=== PATIENT | female | born 1970 | race Caucasian/White ===

== ENCOUNTER 2016-07-10 22:52 | Emergency (ER) | payer BC ==
[2016-07-10 23:08] VITALS: BP 141/87
[2016-07-10] MEDS ORDERED: Sodium Chloride 0.9% 10 ML Syringe FLUSH PRN (23:27)
[2016-07-10] MEDS ORDERED: Albuterol/Ipratropium 3.0-0.5 MG/3 ML Neb Soln NEB ONE (23:28)
[2016-07-10] MEDS ORDERED: methylPREDNISolone Sodium Succinate 40 MG/1 ML SDV IVPUSH ONE (23:28)
--- NOTE | 2016-07-10 23:32 | EDM.PDOC ---
ED HISTORY OF PRESENT ILLNESS - General Chief Complaint: Respiratory Problem Stated Complaint: COUGH Time Seen by Provider: 07/10/16 23:23 Source: Reports: Patient, Family, RN notes reviewed History Limitations: Reports: No limitations - History of Present Illness INITIAL COMMENTS - FREE TEXT/NARRATIVE: 46-year-old female presents emergency department for a complaint of shortness of breath, she's been ill for about 2 weeks was evaluated in urgent care clinic 3 days prior felt to have bronchitis and started on azithromycin, she states she just has not improved and has progressively gotten more short of breath or wheezing or cough and has had temperature in the 99, - Related Data Allergies/ADRs: Allergies Allergy/AdvReac Type Severity Reaction Status Date / Time No Known Allergies Allergy Verified 07/10/16 23:09 Home Meds: Home Meds buPROPion [Wellbutrin XL] 150 mg PO BID 04/21/13 [History] Albuterol [Ventolin HFA] 2 puff INH QID PRN 07/10/16 [History] Azithromycin [Azithromycin] 1 tab PO DAILY 07/10/16 [History] 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: Musculoskeletal History: Reports: Back pain, chronic, Fracture - Infectious Disease History Infectious Disease History: Reports: Chicken pox, Shingles - Past Surgical History HEENT Surgical History: Reports: Tonsillectomy GI Surgical History: Reports: Hernia, abdominal Female Surgical History: Reports: section Musculoskeletal Surgical History: Reports: Arthroscopic knee, Other (see below) Other Musculoskeletal Surgeries/Procedures:: hand surgery Fusion l foot Oncologic Surgical History: Reports: Lumpectomy Social & Family History - Tobacco Use Smoking Status *Q: Light Tobacco Smoker Years of Tobacco use: 15 Packs/Tins Daily: 0.5 Used Tobacco, but Quit: No Second Hand Smoke Exposure: Yes - Caffeine Use Caffeine Use: Reports: Coffee, Tea - Alcohol Use Days Per Week of Alcohol Use: 0 - Recreational Drug Use Recreational Drug Use: No ED ROS GENERAL - Review of Systems Review Of Systems: See Below Constitutional: Reports: fever, chills HEENT: Reports: No symptoms Respiratory: Reports: Shortness of Breath, Cough, Sputum Cardiovascular: Reports: Dyspnea on exertion, Lightheadedness. Denies: Chest pain GI/Abdominal: Reports: No symptoms : Reports: no symptoms Musculoskeletal: Reports: no symptoms Skin: Reports: no symptoms Neurological: Reports: No Symptoms ED EXAM, GENERAL - Physical Exam Exam: See Below Free Text/Narrative:: General: female, mild respiratory distress, alert and oriented x3 HEENT: head is atraumatic normocephalic, eyes pupils equal round reactive to light, sclera clear no conjunctivitis appreciated. Ears tympanic membranes clear and dobson landmarks and light reflex are present bilaterally canals are clear. Nose no septal deviation, nares are clear, no blood present. Mouth mucosa is moist and pink no erythema or exudate noted in soft palate, tongue is midline uvula is midline, dentition is intact. Neck: Supple no thyromegaly no tracheal deviation. Nodes: Cervical nodes subclavicular nodes nontender no palpable lymphadenopathy noted. Lungs: expiratory wheeze probably on the right side mid to lower lung roque otherwise coarse breath sounds CV: Regular rate and rhythm S1 and S2 appreciated no murmurs rubs or gallops noted. Abdomen: Soft, nontender, no palpable masses or organomegaly appreciated, no distention no guarding bowel sounds are present . Neuro: Cranial nerves II through XII grossly intact Skin: Warm and dry, intact Extremities: +1 pitting edema bilaterally Course - Vital Signs Last Recorded V/S: Last Vital Signs Temp 98.1 F 07/10/16 23:19 Pulse 75 07/10/16 23:19 Resp 16 07/10/16 23:19 BP 141/87 H 07/10/16 23:19 Pulse Ox 99 07/10/16 23:19 - Orders/Labs/Meds Orders: Active Orders 24 hr Category Date Time Status Peripheral IV Care [RC] . DIRECTED Care 07/10/16 23:28 Active RT Aerosol Therapy [RC] ASDIRECTED Care 07/10/16 23:29 Active Chest 2V [CR] Urgent Exams 07/10/16 23:27 Taken INFLUENZA A+B AG SCREEN [RM] Urgent Lab 07/10/16 23:45 Ordered Sodium Chloride 0.9% [Saline Flush] Med 07/10/16 23:27 Active 10 ml FLUSH ASDIRECTED PRN Sodium Chloride 0.9% [Saline Flush] Med 07/10/16 23:27 Active 10 ml FLUSH ASDIRECTED PRN cefTRIAXone [Rocephin] 1 gm Med 07/11/16 00:20 Ordered Sodium Chloride 0.9% [Normal Saline] 50 ml IV ONETIME Peripheral IV Insertion Adult [OM.PC] Urgent Oth 07/10/16 23:27 Ordered Medication Orders Ceftriaxone Sodium 1 gm/ (Sodium Chloride) 50 mls @ 100 mls/hr IV ONETIME ONE Stop: 07/11/16 00:49 Sodium Chloride (Saline Flush) 10 ml FLUSH ASDIRECTED PRN PRN Reason: Keep Vein Open Sodium Chloride (Saline Flush) 10 ml FLUSH ASDIRECTED PRN PRN Reason: Keep Vein Open Last Admin: 07/10/16 23:41 Dose: 10 ml Admin: 07/10/16 23:39 Dose: 10 ml Labs: Laboratory Tests 07/10/16 07/10/16 07/10/16 Range/Units 23:38 23:38 23:38 WBC 8.0 (4.5-11.0) K/uL RBC 4.08 (3.30-5.50) M/uL Hgb 12.1 (12.0-15.0) g/dL Hct 36.7 (36.0-48.0) % MCV 90 (80-98) fL MCH 30 (27-31) pg MCHC 33 (32-36) % Plt Count 239 (150-400) K/uL Neut % (Auto) 30 L (36-66) % Lymph % (Auto) 52 H (24-44) % [place] % (Auto) 12 H (2-6) % Eos % (Auto) 4 (2-4) % Baso % (Auto) 2 H (0-1) % Sodium 142 (140-148) mmol/L Potassium 4.0 (3.6-5.2) mmol/L Chloride 107 (100-108) mmol/L Carbon Dioxide 23 (21-32) mmol/L Anion Gap 12.1 (5.0-14.0) mmol/L BUN 13 (7-18) mg/dL Creatinine 1.0 (0.6-1.0) mg/dL Est Cr Clr Drug Dosing 56.19 mL/min Estimated GFR (MDRD) 60 (>60) Glucose 93 (74-106) mg/dL Lactic Acid 1.4 (0.4-2.0) mmol/L Calcium 8.6 (8.5-10.1) mg/dL Total Bilirubin 0.2 (0.2-1.0) mg/dL AST 24 (15-37) U/L ALT 35 (12-78) U/L Alkaline Phosphatase 52 (46-116) U/L Troponin I (0.000-0.056) ng/mL Htc-L-Qintivclxwy Pept (5-125) pg/mL Total Protein 7.1 (6.4-8.2) g/dL Albumin 3.6 (3.4-5.0) g/dL Globulin 3.5 (2.3-3.5) g/dL Albumin/Globulin Ratio 1.0 L (1.2-2.2) 07/10/16 07/10/16 Range/Units 23:38 23:38 WBC (4.5-11.0) K/uL RBC (3.30-5.50) M/uL Hgb (12.0-15.0) g/dL Hct (36.0-48.0) % MCV (80-98) fL MCH (27-31) pg MCHC (32-36) % Plt Count (150-400) K/uL Neut % (Auto) (36-66) % Lymph % (Auto) (24-44) % [place] % (Auto) (2-6) % Eos % (Auto) (2-4) % Baso % (Auto) (0-1) % Sodium (140-148) mmol/L Potassium (3.6-5.2) mmol/L Chloride (100-108) mmol/L Carbon Dioxide (21-32) mmol/L Anion Gap (5.0-14.0) mmol/L BUN (7-18) mg/dL Creatinine (0.6-1.0) mg/dL Est Cr Clr Drug Dosing mL/min Estimated GFR (MDRD) (>60) Glucose (74-106) mg/dL Lactic Acid (0.4-2.0) mmol/L Calcium (8.5-10.1) mg/dL Total Bilirubin (0.2-1.0) mg/dL AST (15-37) U/L ALT (12-78) U/L Alkaline Phosphatase (46-116) U/L Troponin I < 0.017 (0.000-0.056) ng/mL Wfh-D-Twdzyromnmc Pept 228 H (5-125) pg/mL Total Protein (6.4-8.2) g/dL Albumin (3.4-5.0) g/dL Globulin (2.3-3.5) g/dL Albumin/Globulin Ratio (1.2-2.2) Meds: Medications Generic Name Dose Route Start Last Admin Trade Name Freq PRN Reason Stop Dose Admin Ceftriaxone Sodium 1 gm/ 50 mls @ 100 mls/hr 07/11/16 00:20 Sodium Chloride IV 07/11/16 00:49 ONETIME ONE Sodium Chloride 10 ml 07/10/16 23:27 Saline Flush FLUSH ASDIRECTED PRN Keep Vein Open Sodium Chloride 10 ml 07/10/16 23:27 07/10/16 23:41 Saline Flush FLUSH 10 ml ASDIRECTED PRN Administration Keep Vein Open Discontinued Medications Generic Name Dose Route Start Last Admin Trade Name Freq PRN Reason Stop Dose Admin Albuterol/Ipratropium 3 ml 07/10/16 23:28 07/10/16 23:39 Duoneb 3.0-0.5 Mg/3 Ml NEB 07/10/16 23:29 3 ml ONETIME ONE Administration Methylprednisolone Sodium Succinate 40 mg 07/10/16 23:28 07/10/16 23:40 Solu-Medrol IVPUSH 07/10/16 23:29 40 mg ONETIME ONE Administration Departure - Departure Time of Disposition: 00:23 Disposition: Home, Self-Care 01 Condition: good Clinical Impression: Bronchitis, Wheezing, Cough Forms: ED Department Discharge Additional Instructions: continue course of antibiotics of azithromycin are started, take full course of prednisone for 5 days, use Robitussin a.c. as needed help suppress the cough, Please followup with your primary care provider in 3-5 days if not better, please call return to the emergency department with worsening of symptoms. - My Orders Last 24 Hours: My Active Orders 07/10/16 23:27 Chest 2V [CR] Urgent Sodium Chloride 0.9% [Saline Flush] 10 ml FLUSH ASDIRECTED PRN Sodium Chloride 0.9% [Saline Flush] 10 ml FLUSH ASDIRECTED PRN Peripheral IV Insertion Adult [OM.PC] Urgent 07/10/16 23:28 Peripheral IV Care [RC] . DIRECTED 07/10/16 23:29 RT Aerosol Therapy [RC] ASDIRECTED 07/10/16 23:45 INFLUENZA A+B AG SCREEN [RM] Urgent 07/11/16 00:20 cefTRIAXone [Rocephin] 1 gm Sodium Chloride 0.9% [Normal Saline] 50 ml IV ONETIME - Assessment/Plan Last 24 Hours: My Active Orders 07/10/16 23:27 Chest 2V [CR] Urgent Sodium Chloride 0.9% [Saline Flush] 10 ml FLUSH ASDIRECTED PRN Sodium Chloride 0.9% [Saline Flush] 10 ml FLUSH ASDIRECTED PRN Peripheral IV Insertion Adult [OM.PC] Urgent 07/10/16 23:28 Peripheral IV Care [RC] . DIRECTED 07/10/16 23:29 RT Aerosol Therapy [RC] ASDIRECTED 07/10/16 23:45 INFLUENZA A+B AG SCREEN [RM] Urgent 07/11/16 00:20 cefTRIAXone [Rocephin] 1 gm Sodium Chloride 0.9% [Normal Saline] 50 ml IV ONETIME Plan: Assessment Acuity = acute Site and laterality = bronchitis with a component of reactive airway Etiology =suspicious for bacterial cause Manifestations = wheezing, dyspnea Location of injury = home Lab values = CBC, CMP within normal limits troponin negative, BNP mildly elevated at 228, chest x-ray I did review films myself I cannot appreciate any acute process, the official read from radiology is pending Plan I did review blood work and chest x-ray were results with her she had some relief with the DuoNeb provided she was given 40 mg of Solu-Medrol IV as well as 1 g of Rocephin plan is to continue the course of azithromycin as an outpatient in combination with 20 mg prednisone for 5 days as well as Robitussin -AC for cough suppressant followup with primary care 2-3 days if no improvement Patient was in agreement with the plan all questions were answered, they were instructed to return to the emergency department or call for worsening symptoms. This note was dictated using [employer] voice recognition software please call with any questions.
[2016-07-10] MEDS: Sodium Chloride 0.9% 10 ML Syringe FLUSH PRN ×2 (23:39→23:41)
[2016-07-11] MEDS ORDERED: cefTRIAXone 1 GM in Sodium Chloride 0.9% 50 ML IV ONE (00:20)
--- NOTE | 2016-07-11 09:07 | CR ---
Chest 2V INDICATION: cough FINDINGS: Heart size normal. Lungs are clear. Mild hypertrophic changes thoracic spine.
== END 2016-07-11 00:50 | disposition home or self-care (01) ==
LOC: JP.ED 22:52
DX: J40 Bronchitis, not specified as acute or chronic (principal); R06.2 Wheezing; R05 Cough; F17.210 Nicotine dependence, cigarettes, uncomplicated; Z79.899 Other long term (current) drug therapy; Z98.890 Other specified postprocedural states
CPT/HCPCS: 36415; 71020; 80053; 83605; 83880; 84484; 85025; 87804; 94640; 96374; 99285; J0696; J2920; J7050; J7620

== ENCOUNTER 2017-08-23 07:06 | Emergency (ER) | payer BC ==
[2017-08-23 07:21] VITALS: BP 116/90
[2017-08-23] MEDS ORDERED: Albuterol 0.083% 2.5 MG/3 ML Neb Soln NEB ONE (07:48)
[2017-08-23] MEDS ORDERED: Benzonatate 100 MG Cap PO ONE (07:49)
--- NOTE | 2017-08-23 08:53 | CR ---
CHEST: 2 view CLINICAL HISTORY:Shortness of breath COMPARISON:2017 FINDINGS: Heart size pulmonary vascularity and hilar structures are normal. No infiltrate effusion o r pneumothorax is seen. There is stable mild compression deformities in the midthoracic spine Impression: No acute cardiopulmonary process or significant change from prior study.
[2017-08-23] MEDS ORDERED: Albuterol/Ipratropium 3.0-0.5 MG/3 ML Neb Soln NEB ONE (09:03)
--- NOTE | 2017-08-23 09:15 | EDM.PDOC ---
ED HPI GENERAL MEDICAL PROBLEM - General Chief Complaint: Respiratory Problem Stated Complaint: COPD Time Seen by Provider: 08/23/17 07:20 Source of Information: Reports: Patient History Limitations: Reports: No Limitations - History of Present Illness INITIAL COMMENTS - FREE TEXT/NARRATIVE: pt arrived feeling sob. She was at the walk in clinic on Monday and she was placed on predisone and augmentin. She is slightly better but she is still not comfortable. Onset: Gradual, Other ( Pt has been coughing and wheezing for several days. ) Duration: Day(s): Location: Reports: Chest Associated Symptoms: Reports: Cough, Fever/Chills, Malaise, Shortness of Breath Bilateral Middle Mid-Posterior Chest Pain Score (Numeric/FACES): 2 - Related Data Allergies Allergy/AdvReac Type Severity Reaction Status Date / Time No Known Allergies Allergy Verified 07/10/16 23:09 Home Meds: Home Meds buPROPion [Wellbutrin XL] 150 mg PO BID 04/21/13 [History] Albuterol [Ventolin HFA] 2 puff INH QID PRN 07/10/16 [History] Azithromycin 1 tab PO DAILY 07/10/16 [History] Beclomethasone Dipropionate [Qvar] 2 mcg PO BID 08/23/17 [History] Montelukast [Singulair] 10 mg PO DAILY 08/23/17 [History] Past Medical History Respiratory History: Reports: COPD, Pneumonia, 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: Musculoskeletal History: Reports: Back Pain, Chronic, Fracture Psychiatric History: Reports: Depression - Infectious Disease History Infectious Disease History: Reports: Chicken Pox, Shingles - Past Surgical History HEENT Surgical History: Reports: Tonsillectomy GI Surgical History: Reports: Hernia, Abdominal Female Surgical History: Reports: Section Musculoskeletal Surgical History: Reports: Arthroscopic Knee, Other (See Below) Oncologic Surgical History: Reports: Lumpectomy Social & Family History - Tobacco Use Smoking Status *Q: Former Smoker Years of Tobacco use: 30 Packs/Tins Daily: 0.5 Used Tobacco, but Quit: Yes Month/Year Tobacco Last Used: 1 Second Hand Smoke Exposure: Yes - Caffeine Use Caffeine Use: Reports: Coffee - Alcohol Use Days Per Week of Alcohol Use: 0 - Recreational Drug Use Recreational Drug Use: No Recreational Drug Type: Reports: Other (see below) Other Recreational Drug Type: occ THC ED ROS GENERAL - Review of Systems Review Of Systems: See Below Constitutional: Reports: No Symptoms HEENT: Reports: No Symptoms Respiratory: Reports: Shortness of Breath, Wheezing, Cough Cardiovascular: Reports: No Symptoms Endocrine: Reports: No Symptoms GI/Abdominal: Reports: No Symptoms : Reports: No Symptoms ED EXAM, GENERAL - Physical Exam Exam: See Below Free Text/Narrative:: pt arrived with sob and wheezing. She is coughing markedly. She is on predisone and augmentin. Exam Limited By: No Limitations General Appearance: Alert, Mild Distress Ears: Normal TMs Nose: Normal Inspection Throat/Mouth: Normal Inspection Head: Atraumatic Neck: Normal Inspection Respiratory/Chest: Decreased Breath Sounds, Wheezing Cardiovascular: Regular Rate, Rhythm GI/Abdominal: Soft, Non-Tender Rectal (Female) Exam: Deferred Extremities: Normal Inspection Neurological: Alert, Oriented, Normal Cognition Psychiatric: Anxious Course - Vital Signs Last Recorded V/S: Last Vital Signs Temp 35.4 C 08/23/17 07:19 Pulse 84 08/23/17 07:19 Resp 20 08/23/17 07:19 BP 116/90 08/23/17 07:19 Pulse Ox 99 08/23/17 07:19 - Orders/Labs/Meds Orders: Active Orders 24 hr Category Date Time Status RT Aerosol Therapy [RC] ASDIRECTED Care 08/23/17 07:48 Active RT Aerosol Therapy [RC] ASDIRECTED Care 08/23/17 09:03 Active Labs: Laboratory Tests 08/23/17 08/23/17 08/23/17 Range/Units 07:41 07:41 07:45 WBC 10.8 (4.5-11.0) K/uL RBC 4.61 (3.30-5.50) M/uL Hgb 13.7 (12.0-15.0) g/dL Hct 41.4 (36.0-48.0) % MCV 90 (80-98) fL MCH 30 (27-31) pg MCHC 33 (32-36) % Plt Count 234 (150-400) K/uL Neut % (Auto) 60 (36-66) % Lymph % (Auto) 32 (24-44) % [place] % (Auto) 8 H (2-6) % Eos % (Auto) 0 L (2-4) % Baso % (Auto) 0 (0-1) % Puncture Site Rt radial ABG pH 7.423 (7.350-7.450) ABG pCO2 34.3 L (35.0-42.0) mmHg ABG pO2 78.9 (75.0-100.0) mmHg ABG HCO3 21.9 L (22.0-26.0) mmol/L ABG Total CO2 19.4 L (21.0-25.0) mmol/L ABG O2 Saturation 96.0 (95.0-98.0) % ABG O2 Content 17.9 (15.0-23.0) %vol ABG Base Excess -1.4 mm/L ABG Hemoglobin 13.4 (12.0-16.0) g/dL ABG Oxyhemoglobin 94.7 % ABG Carboxyhemoglobin 0.8 (0.0-1.6) % ABG Methemoglobin 0.6 % Darrell Test Passed O2 Delivery Device Room air Sodium 144 (140-148) mmol/L Potassium 4.4 (3.6-5.2) mmol/L Chloride 108 (100-108) mmol/L Carbon Dioxide 24 (21-32) mmol/L Anion Gap 12.0 (5.0-14.0) mmol/L BUN 13 (7-18) mg/dL Creatinine 1.2 H (0.6-1.0) mg/dL Est Cr Clr Drug Dosing TNP Estimated GFR (MDRD) 48 L (>60) Glucose 108 H (74-106) mg/dL Calcium 9.1 (8.5-10.1) mg/dL Total Bilirubin 0.3 (0.2-1.0) mg/dL AST 38 H (15-37) U/L ALT 52 (12-78) U/L Alkaline Phosphatase 98 D (46-116) U/L Total Protein 7.4 (6.4-8.2) g/dL Albumin 3.7 (3.4-5.0) g/dL Globulin 3.7 H (2.3-3.5) g/dL Albumin/Globulin Ratio 1.0 L (1.2-2.2) Meds: Medications Discontinued Medications Generic Name Dose Route Start Last Admin Trade Name Freq PRN Reason Stop Dose Admin Albuterol 2.5 mg 08/23/17 07:48 08/23/17 08:06 Proventil Neb Soln NEB 08/23/17 07:49 2.5 mg ONETIME ONE Administration Albuterol/Ipratropium 3 ml 08/23/17 09:03 08/23/17 09:08 Duoneb 3.0-0.5 Mg/3 Ml NEB 08/23/17 09:04 3 ml ONETIME ONE Administration Benzonatate 200 mg 08/23/17 07:49 08/23/17 07:58 Tessalon Perles PO 08/23/17 07:50 200 mg ONETIME ONE Administration - Re-Assessments/Exams Free Text/Narrative Re-Assessment/Exam: 08/23/17 09:13 pt has recived 2 nebs--one albuterol and one duo. She was given tesslon perles, Her chest xray did not reveal a infiltrate. Her wbc was norml. Her blood gases did not reveal co2 retention and her o2 sats were good. Departure - Departure Time of Disposition: 09:15 Disposition: Home, Self-Care 01 Condition: Fair Clinical Impression: Bronchitis, Bronchospasm - Discharge Information Referrals: Janny Elkins PA [Primary Care Provider] - Care Plan Goals: cool mist humidifier, push fluids, cont predisone and augmentin, tesslon perles 200mg tid to suppress cough, albuterol neb q4h on a regular basis. rtc if problems. - My Orders Last 24 Hours: My Active Orders 08/23/17 07:48 RT Aerosol Therapy [RC] ASDIRECTED 08/23/17 09:03 RT Aerosol Therapy [RC] ASDIRECTED - Assessment/Plan Last 24 Hours: My Active Orders 08/23/17 07:48 RT Aerosol Therapy [RC] ASDIRECTED 08/23/17 09:03 RT Aerosol Therapy [RC] ASDIRECTED
== END 2017-08-23 09:52 | disposition home or self-care (01) ==
LOC: JP.ED 07:06
DX: J98.01 Acute bronchospasm (principal); J40 Bronchitis, not specified as acute or chronic; J44.9 Chronic obstructive pulmonary disease, unspecified; F32.9 Major depressive disorder, single episode, unspecified; Z87.891 Personal history of nicotine dependence; Z87.01 Personal history of pneumonia (recurrent); Z79.899 Other long term (current) drug therapy
CPT/HCPCS: 36415; 36600; 71046; 80053; 82803; 85025; 94640; 99285; A9270; J7620

== ENCOUNTER 2018-05-01 13:54 | Emergency (ER) | payer BC ==
[2018-05-01] MEDS ORDERED: Codeine/guaiFENesin 100mg-10 MG/5 ML Syrup 10 ML Cup PO ONE (15:22)
--- NOTE | 2018-05-01 15:24 | EDM.PDOC ---
ED HPI GENERAL MEDICAL PROBLEM - General Chief Complaint: Respiratory Problem Stated Complaint: SOB, FEVER, HBP Time Seen by Provider: 05/01/18 15:10 Source of Information: Reports: Patient, RN Notes Reviewed History Limitations: Reports: No Limitations - History of Present Illness INITIAL COMMENTS - FREE TEXT/NARRATIVE: 48-year-old female presents to the emergency department today with complaint of shortness of breath, she states she's been short of breath for about a month does have a known history of COPD has been treated with antibiotics of doxycycline is currently on antibiotic of cephalexin is also on prednisone as well. She did receive a flu shot this year. Has had several days rest without any recovery was able to go to work today and made until about noon and started feeling dyspneic does have chest pain secondary to her cough Anterior Chest Pain Score (Numeric/FACES): 4 - Related Data Allergies Allergy/AdvReac Type Severity Reaction Status Date / Time No Known Allergies Allergy Verified 05/01/18 14:38 Home Meds: Home Meds buPROPion [Wellbutrin XL] 150 mg PO BID 04/21/13 [History] Albuterol [Ventolin HFA] 2 puff INH QID PRN 07/10/16 [History] Montelukast [Singulair] 10 mg PO DAILY 08/23/17 [History] Albuterol Sulfate 3 ml INH Q4H PRN 05/01/18 [History] Cephalexin [Keflex] 250 mg PO BID 05/01/18 [History] Tiotropium [Spiriva Handihaler] 1 dose INH DAILY 05/01/18 [History] Varenicline [Chantix] 1 mg PO BIDPC 05/01/18 [History] predniSONE [Prednisone] 10 mg PO DAILY 05/01/18 [History] Past Medical History Respiratory History: Reports: COPD, Pneumonia, Recurrent INTERNAL CONTROLS SPECIALIST History: Reports: Musculoskeletal History: Reports: Back Pain, Chronic, Fracture Psychiatric History: Reports: Depression - Infectious Disease History Infectious Disease History: Reports: Chicken Pox, Shingles - Past Surgical History HEENT Surgical History: Reports: Tonsillectomy GI Surgical History: Reports: Hernia, Abdominal Female Surgical History: Reports: Section, Salpingo-Oophorectomy Musculoskeletal Surgical History: Reports: Arthroscopic Knee Oncologic Surgical History: Reports: Lumpectomy Social & Family History - Tobacco Use Smoking Status *Q: Former Smoker Years of Tobacco use: 24 Packs/Tins Daily: 0.5 Used Tobacco, but Quit: Yes Month/Year Tobacco Last Used: Mar 2018 Tobacco Use Comment: Sneeks a smoke occasionally Second Hand Smoke Exposure: Yes - Caffeine Use Caffeine Use: Reports: Coffee - Recreational Drug Use Recreational Drug Use: Yes Recreational Drug Type: Reports: Marijuana/Hashish Recreational Drug Use Frequency: Socially ED ROS GENERAL - Review of Systems Review Of Systems: See Below Constitutional: Reports: Fever (Feverish), Chills HEENT: Reports: No Symptoms Respiratory: Reports: Shortness of Breath, Pleuritic Chest Pain, Cough, Sputum. Denies: Wheezing Cardiovascular: Reports: Chest Pain, Dyspnea on Exertion GI/Abdominal: Reports: No Symptoms : Reports: No Symptoms Musculoskeletal: Reports: No Symptoms Skin: Reports: No Symptoms Neurological: Reports: No Symptoms ED EXAM, GENERAL - Physical Exam Exam: See Below Free Text/Narrative:: General: Female, not in any distress, alert and oriented x3 HEENT: head is atraumatic normocephalic, eyes pupils equal round reactive to light, sclera clear no conjunctivitis appreciated. Ears tympanic membranes clear and dobson landmarks and light reflex are present bilaterally canals are clear. Nose no septal deviation, nares are clear, no blood present. Mouth mucosa is moist and pink no erythema or exudate noted in soft palate, tongue is midline uvula is midline, dentition is intact. Neck: Supple no thyromegaly no tracheal deviation. Nodes: Cervical nodes subclavicular nodes nontender no palpable lymphadenopathy noted. Lungs: clear to auscultation bilaterally with symmetrical respirations, no adventitious noise appreciated. CV: Regular rate and rhythm S1 and S2 appreciated no murmurs rubs or gallops noted. Abdomen: Soft, nontender, no palpable masses or organomegaly appreciated, no distention no guarding bowel sounds are present, . Neuro: GCS 15 Extremities: No lower extremity edema appreciated, Course - Vital Signs Last Recorded V/S: Last Vital Signs Temp 97.0 F 05/01/18 16:00 Pulse 72 05/01/18 16:00 Resp 14 05/01/18 16:00 BP 134/79 05/01/18 16:00 Pulse Ox 96 05/01/18 16:00 - Orders/Labs/Meds Orders: Active Orders 24 hr Category Date Time Status Chest 2V [CR] Urgent Exams 05/01/18 15:20 Taken Labs: Laboratory Tests 05/01/18 05/01/18 05/01/18 Range/Units 15:32 15:32 15:32 WBC 16.3 H (4.5-11.0) K/uL RBC 4.57 (3.30-5.50) M/uL Hgb 13.5 (12.0-15.0) g/dL Hct 41.0 (36.0-48.0) % MCV 90 (80-98) fL MCH 30 (27-31) pg MCHC 33 (32-36) % Plt Count 314 (150-400) K/uL Neut % (Auto) 81 H (36-66) % Lymph % (Auto) 15 L (24-44) % [place] % (Auto) 5 (2-6) % Eos % (Auto) 0 L (2-4) % Baso % (Auto) 0 (0-1) % D-Dimer, Quantitative 252 (0.0-400.0) ng/mL Sodium 126 L (140-148) mmol/L Potassium 4.4 (3.6-5.2) mmol/L Chloride 95 L (100-108) mmol/L Carbon Dioxide 24 (21-32) mmol/L Anion Gap 11.4 (5.0-14.0) mmol/L BUN 21 H D (7-18) mg/dL Creatinine 1.0 (0.6-1.0) mg/dL Est Cr Clr Drug Dosing 67.63 mL/min Estimated GFR (MDRD) 59 L (>60) Glucose 130 H (74-106) mg/dL Calcium 9.9 (8.5-10.1) mg/dL Total Bilirubin 0.2 (0.2-1.0) mg/dL AST 16 (15-37) U/L ALT 33 (12-78) U/L Alkaline Phosphatase 78 (46-116) U/L Troponin I < 0.017 (0.000-0.056) ng/mL NT-Pro-B Natriuret Pep (5-125) pg/mL Total Protein 7.6 (6.4-8.2) g/dL Albumin 3.7 (3.4-5.0) g/dL Globulin 3.9 H (2.3-3.5) g/dL Albumin/Globulin Ratio 1.0 L (1.2-2.2) 05/01/18 Range/Units 15:32 WBC (4.5-11.0) K/uL RBC (3.30-5.50) M/uL Hgb (12.0-15.0) g/dL Hct (36.0-48.0) % MCV (80-98) fL MCH (27-31) pg MCHC (32-36) % Plt Count (150-400) K/uL Neut % (Auto) (36-66) % Lymph % (Auto) (24-44) % [place] % (Auto) (2-6) % Eos % (Auto) (2-4) % Baso % (Auto) (0-1) % D-Dimer, Quantitative (0.0-400.0) ng/mL Sodium (140-148) mmol/L Potassium (3.6-5.2) mmol/L Chloride (100-108) mmol/L Carbon Dioxide (21-32) mmol/L Anion Gap (5.0-14.0) mmol/L BUN (7-18) mg/dL Creatinine (0.6-1.0) mg/dL Est Cr Clr Drug Dosing mL/min Estimated GFR (MDRD) (>60) Glucose (74-106) mg/dL Calcium (8.5-10.1) mg/dL Total Bilirubin (0.2-1.0) mg/dL AST (15-37) U/L ALT (12-78) U/L Alkaline Phosphatase (46-116) U/L Troponin I (0.000-0.056) ng/mL NT-Pro-B Natriuret Pep 61 (5-125) pg/mL Total Protein (6.4-8.2) g/dL Albumin (3.4-5.0) g/dL Globulin (2.3-3.5) g/dL Albumin/Globulin Ratio (1.2-2.2) Meds: Medications Discontinued Medications Generic Name Dose Route Start Last Admin Trade Name Freq PRN Reason Stop Dose Admin Guaifenesin/Codeine Phosphate 10 ml 05/01/18 15:22 05/01/18 15:34 Robitussin Ac PO 05/01/18 15:23 10 ml ONETIME ONE Administration Departure - Departure Time of Disposition: 16:40 Disposition: Home, Self-Care 01 Condition: Fair Clinical Impression: COPD exacerbation - Discharge Information Referrals: Janny Elkins PA [Primary Care Provider] - Forms: ED Department Discharge, ED Return to Work/School Form Additional Instructions: Continue antibiotics and steroids you have initiated, use Robitussin-AC as needed help suppress cough, follow-up with your primary care provider next 3-5 days for reevaluation - My Orders Last 24 Hours: My Active Orders 05/01/18 15:20 Chest 2V [CR] Urgent - Assessment/Plan Last 24 Hours: My Active Orders 05/01/18 15:20 Chest 2V [CR] Urgent Plan: Assessment Acuity = acute Site and laterality = COPD exacerbation Etiology = unclear etiology Manifestations = dyspnea, cough Location of injury = Home Lab values = WBC elevated at 16.3 consistent leukocytosis, d-dimer normal at 252 sodium low at 126 consistent hyponatremia troponin is negative BNP within normal limits 60 when chest x-ray shows no acute process official read radiology is pending influenza A and B both negative Plan She had some relief with the Robitussin-AC plan is discharge home Robitussin-AC 120 mL 10 mL by mouth every 4-6 hours when necessary for cough continue the antibiotics she has started as well as a prednisone recommend follow-up with primary care in the next 3-5 days for reevaluation consider consultation with pulmonary medicine also consider evaluation for alpha-1 antitrypsin deficiency if not already done This note was dictated using [employer] voice recognition software please call with any questions on syntax or grammar.
[2018-05-01 16:29] VITALS: BP 134/79
--- NOTE | 2018-05-02 09:17 | CR ---
Chest 2V HISTORY: No Clinical Info FINDINGS: Heart size within normal limits. Pulmonary vasculature within normal limits. No evidence for focal consolidation or cardiopulmonary process. IMPRESSION: No radiographic evidence for acute cardiopulmonary process.
== END 2018-05-01 16:58 | disposition home or self-care (01) ==
LOC: JP.ED 13:54
DX: J44.1 Chronic obstructive pulmonary disease with (acute) exacerbation (principal); Z87.891 Personal history of nicotine dependence; Z79.899 Other long term (current) drug therapy
CPT/HCPCS: 36415; 71046; 80053; 83880; 84484; 85025; 85379; 87804; 99284; A9270

== ENCOUNTER 2019-07-12 16:34 | Inpatient (IN) | payer BC, MEDICAID ==
[2019-07-12] MEDS ORDERED: Sodium Chloride 0.9% 10 ML Syringe FLUSH PRN (17:53)
[2019-07-12] MEDS ORDERED: Acetaminophen 325 MG Tab PO PRN (17:53)
[2019-07-12] MEDS ORDERED: Polyethylene Glycol 3350 Powder 17 GM Packet PO PRN (17:53)
--- NOTE | 2019-07-12 17:59 | PCM.HP.2 ---
H&P History of Present Illness - General Date of Service: 07/12/19 Admit Problem/Dx: Admission Diagnosis/Problem Admission Diagnosis/Problem Abdominal pain Source of Information: Patient, Provider, RN Notes Reviewed History Limitations: Reports: No Limitations - History of Present Illness Initial Comments - Free Text/Narative: Ms. Simon is a 49-year-old woman who was admitted as a direct admission from the clinic for further management of abdominal pain secondary to a uterine perforation from an IUD. She is not felt well over the past 2 weeks with right- sided abdominal pain that has become progressively worse. She presented to the clinic [address] a [address] scan of the abdomen and pelvis was ordered on an outpatient basis. She had the scan today, results show uterine perforation from an IUD and possible small bowel involvement. Situation has been discussed with Dr. Weston who is planning for exploratory laparoscopy tomorrow. She has not had significant temperature elevation or chills. She has been somewhat constipated, no nausea or vomiting. She has had previous surgery and denies significant problem from anesthesia other than nausea. There is no family history of significant adverse reaction from general anesthetic. She denies any bleeding problems, history of DVT or pulmonary emboli. Recent symptoms of chest pain or pressure or shortness of breath from baseline. She does report a history of COPD as well as asthma. She is able to walk 2 blocks without stopping and 1 flight of stairs. Right Abdomen Pain Score (Numeric/FACES): 6 - Related Data Allergies/Adverse Reactions: Allergies Allergy/AdvReac Type Severity Reaction Status Date / Time No Known Allergies Allergy Verified 05/01/18 14:38 Home Medications: Home Meds buPROPion [Wellbutrin XL] 150 mg PO BID 04/21/13 [History] Albuterol [Ventolin HFA] 2 puff INH QID PRN 07/10/16 [History] Montelukast [Singulair] 10 mg PO DAILY 08/23/17 [History] Albuterol Sulfate 3 ml INH Q4H PRN 05/01/18 [History] Cephalexin [Keflex] 250 mg PO BID 05/01/18 [History] Tiotropium [Spiriva Handihaler] 1 dose INH DAILY 05/01/18 [History] Varenicline [Chantix] 1 mg PO BIDPC 05/01/18 [History] predniSONE [Prednisone] 10 mg PO DAILY 05/01/18 [History] Past Medical History Respiratory History: Reports: COPD, Pneumonia, Recurrent MOTOR TUNE UP SPECIALIST History: Reports: Musculoskeletal History: Reports: Back Pain, Chronic, Fracture Psychiatric History: Reports: Depression - Infectious Disease History Infectious Disease History: Reports: Chicken Pox, Shingles - Past Surgical History HEENT Surgical History: Reports: Tonsillectomy GI Surgical History: Reports: Hernia, Abdominal Female Surgical History: Reports: Section, Salpingo-Oophorectomy Musculoskeletal Surgical History: Reports: Arthroscopic Knee Oncologic Surgical History: Reports: Lumpectomy Social & Family History - Tobacco Use Smoking Status *Q: Former Smoker Years of Tobacco use: 30 Packs/Tins Daily: 0.5 Used Tobacco, but Quit: Yes Month/Year Tobacco Last Used: 05/13 Second Hand Smoke Exposure: No - Caffeine Use Caffeine Use: Reports: Coffee - Alcohol Use Days Per Week of Alcohol Use: 2 Number of Drinks Per Day: 0 Total Drinks Per Week: 0 Date of Last Drink: 07/10/19 Time of Last Drink: 19:00 - Recreational Drug Use Recreational Drug Use: Yes Drug Use in Last 12 Months: Yes Recreational Drug Type: Reports: Marijuana/Hashish Recreational Drug Use Frequency: Weekly H&P Review of Systems - Review of Systems: Review Of Systems: See Below General: Reports: Malaise, Weakness, Decreased Appetite. Denies: Fever, Chills HEENT: Reports: No Symptoms Pulmonary: Reports: No Symptoms Cardiovascular: Reports: No Symptoms Gastrointestinal: Reports: Abdominal Pain, Constipation, Decreased Appetite, Distension. Denies: Diarrhea, Difficulty Swallowing, Hematemesis, Hematochezia , Melena, Nausea, Vomiting Genitourinary: Reports: No Symptoms Musculoskeletal: Reports: No Symptoms Skin: Reports: No Symptoms Psychiatric: Reports: No Symptoms Neurological: Reports: No Symptoms Hematologic/Lymphatic: Reports: No Symptoms Immunologic: Reports: No Symptoms Exam - Exam Exam: See Below - Vital Signs Weight: 197 lb - Exam Quality Assessment: DVT Prophylaxis General: Alert, Oriented, Cooperative, Moderate Distress HEENT: Conjunctiva Clear, Hearing Intact, Mucosa Moist & [place], Normal Nasal Septum, Posterior Pharynx Clear, Pupils Equal Neck: Supple, Trachea Midline, +2 Carotid Pulse wo Bruit Lungs: Clear to Auscultation, Normal Respiratory Effort Cardiovascular: Regular Rate, Regular Rhythm, Normal S1, Normal S2. No: Systolic Murmur, Diastolic Murmur GI/Abdominal Exam: Soft, No Organomegaly, Tender. No: Distended, Guarding, Rigid, Rebound Back Exam: Normal Inspection, Full Range of Motion Extremities: Non-Tender, No Pedal Edema Skin: Warm, Dry, Intact Neurological: Cranial Nerves Intact, Strength Equal Bilateral, Normal Speech, Normal Tone, Sensation Intact. No: Focal Deficit Neuro Extensive - Mental Status: Alert, Oriented x3, Normal Mood/Affect, Normal Cognition, Memory Intact - Patient Data Result Diagrams: 07/12/19 18:10 07/12/19 18:10 *Q Meaningful Use (ADM) - VTE *Q VTE Pharmacological Contraindications *Q: Patient Scheduled Surgery - VTE Risk Assess *Q Each Risk Factor Represents 1 Point: Age 41 - 59 years, Obesity ( BMI > 25 kg/m2 ), Abnormal Pulmonary Function (COPD) Total Score 1 Point Risk Factors: 3 Each Risk Factor Represents 2 Points: None Total Score 2 Point Risk Factors: 0 Each Risk Factor Represents 3 Points: None Total Score 3 Point Risk Factors: 0 Each Risk Factor Represents 5 Points: None Total Score 5 Point Risk Factors: 0 Venous Thromboembolism Risk Factor Score *Q: 3 Problem List Initiated/Reviewed/Updated: Yes Orders Last 24hrs: Active Orders 24 hr Category Date Time Status Patient Status [ADT] Routine ADT 07/12/19 17:51 Ordered Ambulate [RC] QID Care 07/12/19 17:51 Ordered Height and Weight [RC] DAILY Care 07/12/19 17:51 Ordered Intake and Output [RC] QSHIFT Care 07/12/19 17:51 Ordered Notify Provider Consults [RC] ASDIRECTED Care 07/12/19 17:55 Ordered Notify Provider Vital Signs [RC] ASDIRECTED Care 07/12/19 17:51 Ordered Oxygen Therapy [RC] PRN Care 07/12/19 17:51 Ordered Peripheral IV Care [RC] . DIRECTED Care 07/12/19 17:54 Ordered Up to Chair [RC] QID Care 07/12/19 17:51 Ordered VTE/DVT Education [RC] Per Unit Routine Care 07/12/19 17:51 Ordered Vital Signs [RC] Q4H Care 07/12/19 17:51 Ordered Consult to Physician [CONS] Routine Cons 07/12/19 17:53 Ordered Nothing per Oral After Midnight Diet [DIET] Diet 07/13/19 Breakfast Ordered Regular Diet [DIET] Diet 07/12/19 Dinner Ordered CBC WITH AUTO DIFF [HEME] Stat Lab 07/12/19 17:53 Ordered COMPREHENSIVE METABOLIC PN,CMP [CHEM] Stat Lab 07/12/19 17:53 Ordered Acetaminophen [Tylenol] Med 07/12/19 17:53 Ordered 650 mg PO Q4H PRN Dextrose 5%-Lactated Ringers @ 125 MLS/HR(1,000ml) Med 07/12/19 18:00 Ordered Dextrose 5%-Lactated Ringers 1,000 ml IV ASDIRECTED Lactobacillus Rhamnosus GG [Culturelle] Med 07/12/19 18:00 Ordered 1 cap PO BID Ondansetron [Zofran] Med 07/12/19 17:53 Ordered 4 mg IV Q4H PRN Pneumococcal Polyvalent-23 Vac [Pneumovax 23] Med 07/13/19 10:00 Once 0.5 ml IM .ONCE ONE Sodium Chloride 0.9% [Saline Flush] Med 07/12/19 17:53 Ordered 10 ml FLUSH ASDIRECTED PRN cefOXitin [Mefoxin] 2 gm Med 07/12/19 18:00 Ordered Sodium Chloride 0.9% [Normal Saline] 50 ml IV Q6H oxyCODONE Med 07/12/19 17:53 Ordered 5 mg PO Q4H PRN polyethylene glycoL 3350 [MiraLAX] Med 07/12/19 17:53 Ordered 17 gm PO DAILY PRN Peripheral IV Insertion Adult [OM.PC] Routine Oth 07/12/19 17:53 Ordered Sequential Compression Device [OM.PC] Per Unit Routine Oth 07/12/19 17:52 Ordered VTE Pharmacological Contraindications [AST] Per Unit Oth 07/12/19 17:51 Ordered Routine Resuscitation Status Routine Resus Stat 07/12/19 17:51 Ordered Medication Orders Acetaminophen (Tylenol) 650 mg PO Q4H PRN PRN Reason: Pain (Mild 1-3)/fever Ondansetron HCl (Zofran) 4 mg IV Q4H PRN PRN Reason: Nausea/Vomiting Oxycodone HCl (Oxycodone) 5 mg PO Q4H PRN PRN Reason: Pain (moderate 4-6) Pneumococcal Polyvalent Vaccine (Pneumovax 23) 0.5 ml IM .ONCE ONE Stop: 07/13/19 10:01 Assessment/Plan Comment:: ASSESSMENT AND PLAN UTERUS PERFORATION BY IUD-possible small bowel involvement noted on CT scan -IV fluids for hydration -Cefoxitin 2 g IV every 6 hours -N.p.o. after midnight -Surgical consult; Dr. Weston in a.m. -Pain and nausea medication as needed HISTORY OF COPD/ASTHMA-stable with no evidence of acute exacerbation -Supplemental oxygen as needed -Nebulizer therapy as needed MAINTENANCE ISSUES -DVT prophylaxis; SCUDs -GI prophylaxis; not indicated -Trotter catheter; not indicated -Nutrition; regular diet, n.p.o. after midnight -Nicotine dependence; not required CODE STATUS-FULL CODE ADMISSION STATUS-patient will be admitted to inpatient status, expect at least a 2 night hospital stay for evaluation and management of problems as outlined above. At the time of this admission I do not reasonably expected evaluation and management of this problem will require more than a 96 hour hospital stay. DISPOSITION-anticipate discharge to home after the hospital stay. PRIMARY CARE PROVIDER-Philly Elkins - Mortality Measure Prognosis:: Good
[2019-07-12] MEDS ORDERED: Dextrose 5%-Lactated Ringers 1,000 ML IV SCH (18:00)
[2019-07-12] MEDS: oxyCODONE 5 MG Tab PO PRN ×2 (19:27→23:37)
[2019-07-12] MEDS: cefOXitin 2 GM in Sodium Chloride 0.9% 50 ML IV SCH ×2 (19:38→23:41)
[2019-07-12] MEDS: Lactobacillus Rhamnosus GG (Probiotic) Cap PO SCH ×2 (19:38→20:48)
[2019-07-13] MEDS: cefOXitin 2 GM in Sodium Chloride 0.9% 50 ML IV SCH ×3 (05:24→18:42)
[2019-07-13] MEDS ORDERED: Bupivacaine 0.5%/EPINEPHrine 1:200,000 50 ML MDV ONE (06:48)
[2019-07-13] MEDS ORDERED: Albuterol/Ipratropium 3.0-0.5 MG/3 ML Neb Soln NEB ONE (07:00)
[2019-07-13] MEDS ORDERED: Neostigmine Methylsulfate 1 MG/ML 5 ML Syringe ONE (07:25)
[2019-07-13] MEDS ORDERED: Dexamethasone 4 MG/ML SDV ONE (07:25)
[2019-07-13] MEDS ORDERED: Propofol 200 MG/20 ML SDV ONE (07:25)
[2019-07-13] MEDS ORDERED: Rocuronium 50 MG/5 ML Vial ONE (07:25)
[2019-07-13] MEDS ORDERED: Glycopyrrolate 0.2 MG/ML 5 ML MDV ONE (07:25)
[2019-07-13] MEDS ORDERED: Succinylcholine 200 MG/10 ML MDV ONE (07:25)
[2019-07-13] MEDS ORDERED: Ondansetron 4 MG/2 ML SDV ONE (07:25)
[2019-07-13] MEDS ORDERED: fentaNYL 250 MCG/5 ML SDV ONE ×2 (07:27→07:55)
[2019-07-13] MEDS ORDERED: Ketamine 500 MG/5 ML MDV IV SCH (07:45)
[2019-07-13] MEDS ORDERED: Ropivacaine 44 ML, dexAMETHasone 8 MG, EPINEPHrine 0.4 MG, Sodium Chloride 0.9% 33.6 ML NERVRT SCH ×4 (07:45)
[2019-07-13] MEDS ORDERED: Ketamine 50 MG in Sodium Chloride 0.9% 49.5 ML IV SCH (07:45)
[2019-07-13] MEDS ORDERED: Lactated Ringers 1,000 ML ONE (08:17)
[2019-07-13] MEDS ORDERED: Meropenem 500 MG SDV ONE (08:36)
[2019-07-13] MEDS ORDERED: Pneumococcal Polyvalent-23 Vaccine 0.5 ML SDV IM ONE (10:00)
[2019-07-13] MEDS ORDERED: hydrOXYzine HCL 100 MG/2 ML SDV IM ONE (10:07)
[2019-07-13] MEDS ORDERED: Dextrose 5%-Lactated Ringers 1,000 ML IV SCH (11:03)
[2019-07-13] MEDS ORDERED: HYDROmorphone 0.5 MG/0.5 ML Syringe IVPUSH PRN (11:13)
[2019-07-13] MEDS ORDERED: HYDROmorphone 1 MG/ML Syringe IV PRN (11:13)
[2019-07-13] MEDS ORDERED: Cyclobenzaprine 10 MG Tab PO PRN (11:15)
[2019-07-13] MEDS ORDERED: Albuterol/Ipratropium 3.0-0.5 MG/3 ML Neb Soln INH PRN (11:15)
[2019-07-13] MEDS: Lactobacillus Rhamnosus GG (Probiotic) Cap PO SCH (11:19)
[2019-07-13] MEDS: Pantoprazole 40 MG Vial IV SCH (11:28)
[2019-07-13] MEDS ORDERED: Scopolamine 1.5 MG Transdermal Patch TOP ONE (12:00)
[2019-07-13] MEDS: hydrOXYzine HCL 100 MG/2 ML SDV IM PRN (13:08)
[2019-07-13] MEDS: Dextrose 5%-Lactated Ringers 1,000 ML IV SCH ×2 (13:58→20:28)
[2019-07-13] MEDS: VERIFY SCOP PATCH TOP SCH (14:33)
[2019-07-13] MEDS: Fluticasone Propionate Nasal Spray 16 GM Bottle NAS SCH (14:34)
[2019-07-13] MEDS: Docusate Sodium 100 MG Cap PO SCH ×2 (14:34→21:22)
[2019-07-13] MEDS: Raloxifene 60 MG Tab PO SCH (14:34)
[2019-07-13] MEDS: Acetaminophen 500 MG Tab PO SCH ×2 (14:35→21:06)
[2019-07-13] MEDS: Ondansetron 4 MG/2 ML SDV IV PRN (14:50)
[2019-07-13] MEDS: Albuterol/Ipratropium 3.0-0.5 MG/3 ML Neb Soln INH SCH ×2 (14:52→21:27)
[2019-07-13] MEDS ORDERED: Naloxone 0.4 MG/ML SDV IV PRN (16:05)
[2019-07-13] MEDS ORDERED: HYDROmorphone/Normal Saline 15 MG/30 ML PCA IV PRN (16:05)
[2019-07-13] MEDS: Azelastine Nasal Soln 30 ML Spray Bottle NAS SCH (21:06)
[2019-07-13] MEDS: buPROPion 150 MG Tab.SR PO SCH (21:22)
[2019-07-13] MEDS: Montelukast 10 MG Tab PO SCH (21:22)
[2019-07-14] MEDS: cefOXitin 2 GM in Sodium Chloride 0.9% 50 ML IV SCH ×3 (00:33→11:23)
[2019-07-14] MEDS: Dextrose 5%-Lactated Ringers 1,000 ML IV SCH ×2 (02:44→11:20)
[2019-07-14] MEDS: Acetaminophen 500 MG Tab PO SCH ×4 (02:49→20:38)
[2019-07-14] MEDS: Albuterol/Ipratropium 3.0-0.5 MG/3 ML Neb Soln INH SCH ×4 (07:08→20:40)
[2019-07-14] MEDS: TRELEGY ELLIPTA INH SCH (07:09)
[2019-07-14] MEDS: Azelastine Nasal Soln 30 ML Spray Bottle NAS SCH ×2 (09:24→20:38)
[2019-07-14] MEDS: Bisacodyl 5 MG Tab PO SCH ×2 (09:26→20:39)
[2019-07-14] MEDS: Docusate Sodium 100 MG Cap PO SCH ×2 (09:26→20:39)
[2019-07-14] MEDS: Raloxifene 60 MG Tab PO SCH (09:26)
[2019-07-14] MEDS: Fluticasone Propionate Nasal Spray 16 GM Bottle NAS SCH (09:27)
[2019-07-14] MEDS: VERIFY SCOP PATCH TOP SCH (09:27)
[2019-07-14] MEDS: buPROPion 150 MG Tab.SR PO SCH ×2 (09:28→20:40)
[2019-07-14] MEDS: Ondansetron 4 MG/2 ML SDV IV PRN ×2 (09:40→15:37)
[2019-07-14] MEDS: Pantoprazole 40 MG Vial IV SCH (13:13)
[2019-07-14] MEDS: Montelukast 10 MG Tab PO SCH (20:40)
[2019-07-15] MEDS: Acetaminophen 500 MG Tab PO SCH ×4 (02:02→21:13)
[2019-07-15] MEDS: Albuterol/Ipratropium 3.0-0.5 MG/3 ML Neb Soln INH SCH ×4 (07:20→21:13)
[2019-07-15] MEDS: TRELEGY ELLIPTA INH SCH (07:22)
[2019-07-15] MEDS: Pantoprazole 40 MG Tab.CR PO SCH (07:42)
[2019-07-15] MEDS ORDERED: Ondansetron 4 MG Tab.DIS PO PRN (07:43)
[2019-07-15] MEDS: Dextrose 5%-Lactated Ringers 1,000 ML IV SCH (07:44)
--- NOTE | 2019-07-15 09:30 | PN ---
DATE OF SERVICE: 07/15/2019 SUBJECTIVE: Maryjane is postoperative day #2. She has been up, ambulating. Vital signs have been stable. Afebrile. Oral intake 3250. Urine output 3150. She has not had a bowel movement. REVIEW OF SYSTEMS: Remainder of review of systems negative for any pertinent positives and negatives. OBJECTIVE: GENERAL: Maryjane Simon is a 49-year-old female. She is alert, orientated. VITAL SIGNS: TPR at 07:34, 98.6; 86; 16; blood pressure 122/71. HEENT: Negative. NECK: Supple. HEART: Regular rate and rhythm. LUNGS: Clear. ABDOMEN: Pfannenstiel incision is glued. There are no Steri-Strips. Trocar incisions are also glued. Incisions look good. Abdomen is soft, minimally tender. Is not passing flatus, but states she feels gas moving around. EXTREMITIES: Without peripheral edema. ASSESSMENT: 1. Diagnostic laparoscopy. 2. Exploratory laparotomy with: a. Total abdominal hysterectomy (ovaries previously removed), perforating intrauterine device. b. Repair of injury to sigmoid colon. c. Repair of incisional hernia. d. Placement of Interceed mesh for intrauterine device eroded through the surface of the uterus with injury, non full-thickness to junction of the sigmoid colon and adjacent mesentery, incisional hernia between the leaves of the rectus muscle. e. Date of surgery: 07/13/2019. Surgeon: Stan Weston MD. PLAN: 1. Saline lock IV. 2. Dilaudid 2 mg every 4 hours p.r.n. pain. 3. Discontinue SUPERVISOR DECORATING. 4. Discontinue continuous pulse ox. 5. Discontinue PHANI drain. Replace scopolamine patch. 6. Continue full liquid diet because the patient has not had a bowel movement. 7. Communication order written to advance to regular diet when the patient has a bowel movement. 8. Discontinue abdominal binder. 9. We will evaluate p.r.n. or in a.m. Delia Holm PA-C /[id number]
[2019-07-15] MEDS: Raloxifene 60 MG Tab PO SCH (09:56)
[2019-07-15] MEDS: Fluticasone Propionate Nasal Spray 16 GM Bottle NAS SCH (09:56)
[2019-07-15] MEDS: Bisacodyl 5 MG Tab PO SCH ×2 (09:56→21:11)
[2019-07-15] MEDS: buPROPion 150 MG Tab.SR PO SCH ×2 (09:56→21:14)
[2019-07-15] MEDS: Docusate Sodium 100 MG Cap PO SCH ×2 (09:56→21:11)
[2019-07-15] MEDS: Azelastine Nasal Soln 30 ML Spray Bottle NAS SCH ×2 (09:57→21:13)
[2019-07-15] MEDS: HYDROmorphone 2 MG Tab PO PRN ×3 (10:10→22:58)
[2019-07-15] MEDS: VERIFY SCOP PATCH TOP SCH (11:10)
--- NOTE | 2019-07-15 11:45 | PN ---
DATE OF SERVICE: 07/14/2019 The patient has been afebrile with stable vital signs. Urine output is quite high, otherwise appears to be doing fairly well. We will discontinue the Trotter catheter today, turn down the IV rate, and begin a full-liquid diet along with some bowel stimulation. Stan Weston MD /[id number]
[2019-07-15] MEDS ORDERED: Bisacodyl 10 MG Supp RECTAL PRN (16:33)
[2019-07-15] MEDS: hydrOXYzine HCL 100 MG/2 ML SDV IM PRN (19:48)
[2019-07-15] MEDS: Scopolamine 1.5 MG Transdermal Patch TRDERM SCH (19:59)
[2019-07-15] MEDS: Montelukast 10 MG Tab PO SCH (21:14)
[2019-07-16] MEDS: Acetaminophen 500 MG Tab PO SCH ×4 (01:28→20:31)
[2019-07-16] MEDS: Dextrose 5%-Lactated Ringers 1,000 ML IV SCH ×3 (02:55→23:07)
[2019-07-16] MEDS: HYDROmorphone 2 MG Tab PO PRN ×4 (04:55→20:31)
[2019-07-16] MEDS: Albuterol/Ipratropium 3.0-0.5 MG/3 ML Neb Soln INH SCH ×4 (07:03→20:36)
[2019-07-16] MEDS: TRELEGY ELLIPTA INH SCH (07:04)
[2019-07-16] MEDS: Pantoprazole 40 MG Tab.CR PO SCH (07:37)
--- NOTE | 2019-07-16 08:27 | PN ---
DATE OF SERVICE: 07/16/2019 SUBJECTIVE: Maryjane developed an episode last evening where she became very diaphoretic, extreme abdominal pain. She did have 2 bowel movements and felt like it helped a little bit. Temperature max of 100.1. She has been up ambulating, but pain has suppressed that a little bit. REVIEW OF SYSTEMS: Remainder of review of systems negative for any pertinent positives or negatives. IMAGING: Upper GI this morning showed an increased amount of air. OBJECTIVE: GENERAL: Maryjane Simon is a pleasant 49-year-old female. VITAL SIGNS: TPR at 0716; 99.6, 84, 16. Blood pressure 123/75. HEENT: Negative. NECK: Supple. HEART: Regular rate and rhythm. LUNGS: Clear. ABDOMEN: Distended. Firmer than yesterday. Minimal generalized tenderness in all 4 quadrants. EXTREMITIES: Without peripheral edema. ASSESSMENT: 1. Diagnostic laparoscopy. 2. Exploratory laparotomy with: a. Total abdominal hysterectomy (ovaries previously removed), perforating intrauterine device. b. Repair of injury to sigmoid colon. c. Repair of incisional hernia. d. Placement of Interceed mesh. POSTOPERATIVE DIAGNOSES: 1. Intrauterine device eroded through the surface of the uterus with injury, non-full thickness to junction of the sigmoid colon, adjacent mesentery. 2. Incisional hernia between the leaves of the rectus muscle. DATE OF SURGERY: 07/13/2019. SURGEON: Stan Weston MD. PLAN: 1. Bentyl 10 mg q.i.d. and at bedtime scheduled. 2. Continue Dulcolax suppositories b.i.d. 3. Continue Dulcolax oral tabs as directed. 4. Ambulate at least 6 times a day. 5. Use incentive spirometer as directed. 6. We will evaluate p.r.n. or in a.m. Delia Holm PA-C /[id number]
[2019-07-16] MEDS ORDERED: Scopolamine 1.5 MG Transdermal Patch TRDERM SCH (09:00)
--- NOTE | 2019-07-16 09:23 | CR ---
Abdomen 2V AP Flat Upright CLINICAL HISTORY: Ileus FINDINGS: No free air is identified. There are gas distended loops of colon. There is some small bowel distention in a nonspecific pattern. IMPRESSION: Gaseous distention of the colon. This is most likely postoperative ileus
[2019-07-16] MEDS: Azelastine Nasal Soln 30 ML Spray Bottle NAS SCH ×2 (09:38→20:30)
[2019-07-16] MEDS: Bisacodyl 5 MG Tab PO SCH ×2 (09:38→20:30)
[2019-07-16] MEDS: Fluticasone Propionate Nasal Spray 16 GM Bottle NAS SCH (09:38)
[2019-07-16] MEDS: Docusate Sodium 100 MG Cap PO SCH ×2 (09:38→20:30)
[2019-07-16] MEDS: Raloxifene 60 MG Tab PO SCH (09:39)
[2019-07-16] MEDS: buPROPion 150 MG Tab.SR PO SCH ×2 (09:39→20:31)
[2019-07-16] MEDS: VERIFY SCOP PATCH TOP SCH (09:41)
[2019-07-16] MEDS: Dicyclomine 10 MG Cap PO SCH ×3 (10:40→20:31)
[2019-07-16] MEDS: Montelukast 10 MG Tab PO SCH (20:31)
[2019-07-17] MEDS: Acetaminophen 500 MG Tab PO SCH ×2 (02:41→07:49)
[2019-07-17] MEDS: Albuterol/Ipratropium 3.0-0.5 MG/3 ML Neb Soln INH SCH (07:02)
[2019-07-17] MEDS: TRELEGY ELLIPTA INH SCH (07:03)
[2019-07-17 07:22] VITALS: BP 126/77; PULSE 77
[2019-07-17] MEDS: Pantoprazole 40 MG Tab.CR PO SCH (07:49)
[2019-07-17] MEDS: Dicyclomine 10 MG Cap PO SCH (07:49)
--- NOTE | 2019-07-17 08:11 | DISCH ---
ADMISSION DIAGNOSES: 1. Abdominal pain secondary to uterine perforation from an intrauterine device. 2. Chronic obstructive pulmonary disease. 3. Asthma. 4. Chronic back pain. 5. Depression. DISCHARGE DIAGNOSES: Diagnostic laparoscopy turned to laparotomy with: 1. Total abdominal hysterectomy (ovaries previously removed) perforating intrauterine device. 2. Repair of injury to sigmoid colon. 3. Repair of incisional hernia. 4. Placement of Interceed mesh. POSTOPERATIVE DIAGNOSES: 1. Intrauterine device eroded through the surface of the uterus with injury, non full- thickness to junction of the sigmoid colon and adjacent to mesentery. 2. Incisional hernia between the leaves of the rectus muscle. 3. Date of surgery: 07/13/2019. Surgeon: Stan Weston MD. HISTORY: Maryjane Simon is a 49-year-old female who was a direct admit from the clinic. She had a 2-week history of abdominal pain and she had a CT scan of abdomen and pelvis on an outpatient basis and revealed uterine perforation from an IUD with possible small bowel involvement. Surgical consult was obtained. After a preoperative evaluation and discussion of possible risks and possible complications, she wished to proceed with surgical procedure. Maryjane was admitted on 07/12/2019. She had her operation on 07/13/2019. She had no operative complications. On postoperative day #1, her IV was decreased to 100 mL per hour. She was started on a full liquid diet and bowel stimulation. 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 PHANI drain was removed. Scopolamine patch was replaced and continued on a full liquid diet until she has a bowel movement. On postoperative day, on 07/16/2019, she became very distended, diaphoretic and had extreme bowel movement. Temperature max of 100.1. She had been ambulating. She did have 2 bowel movements, this did improve the abdominal distention and pain improved after the bowel movement. On 07/17/2019, Maryjane states that she is ready to be discharged to home, had no complications. CONDITION: Stable and improving. PHYSICAL EXAMINATION: GENERAL: Maryjane Simon is a 49-year-old female. VITAL SIGNS: Height is 5 feet 8.11 inches, weight is 197 pounds. TPR at 02:42, 98.8; 79; 16; blood pressure 125/72. HEENT: Negative. NECK: Supple. HEART: Regular rate and rhythm. LUNGS: Clear. ABDOMEN: Trocar incisions are glued as well as her hysterectomy, Pfannenstiel incision healing well. EXTREMITIES: Without peripheral edema. DISPOSITION: Discharged to home. CONDITION: Stable and improving. FOLLOWUP: Appointment with Delia Holm PA-C, on 07/22/2019 at 9 a.m. HOME MEDICATIONS: 1. Tylenol 1000 mg every 6 hours p.r.n. pain #100. 2. Bisacodyl/dulcolax 10 mg oral twice daily #60. 3. Bentyl 10 mg oral before meals and at bedtime p.r.n. abdominal gas and bloating #40. 4. Colace 100 mg oral b.i.d. #60. 5. Dilaudid 2 mg every 4 hours p.r.n. pain #42. 6. Zofran ODT 4 mg every 4 hours p.r.n. nausea. 7. Transderm scopolamine patch was replaced on day of discharge. She is to remove it on 07/21/2019. 8. To resume home medications of: a. Albuterol sulfate 3 mL every 4 hours p.r.n. wheezing. b. Ventolin inhaler 2 puffs 4 times a day p.r.n. wheezing. c. Astelin nasal solution 2 sprays in each nostril twice a day. d. Cyclobenzaprine 10 mg oral once daily p.r.n. muscle spasms. e. Duloxetine 20 mg oral daily. f. Flonase 2 sprays in each nostril daily. g. Trelegy Ellipta 100-62.5/25 1 puff inhalation daily. h. Chantix 1 mg oral twice daily after meals. i. Bupropion SR 150 mg oral twice daily. DIET: Usual diet as tolerated. Drink 8 to 10 glasses of water a day. ACTIVITY: No lifting over 10 pounds for 6 weeks. Other activity: Walk at least 6 times daily inside your home. Driving: Do not drive for 1 week. Shower/bathing: May shower. DISCHARGE INSTRUCTIONS: Notify provider if any fever, increased pain, nausea, or vomiting. Keep site clean and dry. Wear abdominal binder for 6 weeks. SPECIAL INSTRUCTIONS: Use incentive spirometer 10 times every hour while awake.
[2019-07-17] MEDS ORDERED: Pneumococcal Polyvalent-23 Vaccine 0.5 ML SDV IM ONE (09:00)
[2019-07-17] MEDS: Fluticasone Propionate Nasal Spray 16 GM Bottle NAS SCH (09:51)
[2019-07-17] MEDS: Bisacodyl 5 MG Tab PO SCH (09:52)
[2019-07-17] MEDS: buPROPion 150 MG Tab.SR PO SCH (09:52)
[2019-07-17] MEDS: Azelastine Nasal Soln 30 ML Spray Bottle NAS SCH (09:52)
[2019-07-17] MEDS: Docusate Sodium 100 MG Cap PO SCH (09:52)
[2019-07-17] MEDS: Raloxifene 60 MG Tab PO SCH (09:53)
[2019-07-17] MEDS: Scopolamine 1.5 MG Transdermal Patch TRDERM SCH (10:26)
[2019-07-17] MEDS ORDERED: Scopolamine 1.5 MG Transdermal Patch TRDERM SCH ×2 (10:30)
--- NOTE | 2019-07-17 13:38 | OR ---
DATE OF PROCEDURE: 07/13/2019 SURGEON: Stan Weston MD PREOPERATIVE DIAGNOSIS: Intrauterine device eroded through surface of the uterus with possible bowel injury. POSTOPERATIVE DIAGNOSES: 1. Intrauterine device eroded through surface of the uterus with injury (non full- thickness) to junction of sigmoid colon and adjacent mesentery. 2. Incisional hernia. OPERATIVE PROCEDURES: 1. Diagnostic laparoscopy (23972). 2. Exploratory laparotomy with: a. Total abdominal hysterectomy including removal of perforating intrauterine device (19783, 81174). b. Repair of injury to sigmoid colon (08528). c. Repair of incisional hernia (91313). d. Placement of Interceed mesh to limit adhesions between the pelvic and abdominal wall and underlying viscera (89227). ANESTHESIA: General. INDICATION FOR PROCEDURE: The patient presented with some worsening pelvic pain. A CT scan was obtained which showed an IUD which had penetrated through the surface of the uterus, and it was causing some questionable injury to the adjacent bowel. Plan is to proceed with initial diagnostic laparoscopy to see if, by some chance, this could be treated via laparoscopic approach, and if so that would be performed. Otherwise, if the amount of scarring and such were making it evident that open laparotomy would be a safer approach, that would be then conducted thereafter. Potential risks of the procedure including bleeding, infection, injury to underlying viscera, possible need for hysterectomy and/or bowel resection were reviewed, and the patient wishes to proceed. DETAILS OF PROCEDURE: The patient was taken to the operating room and placed in a supine position. After general endotracheal anesthesia was induced, a Trotter catheter was inserted and the abdomen prepped and draped. Initially, a transverse incision was made 3 fingerbreadths superior and to the left of the umbilicus and the peritoneal cavity entered under direct vision with an Optiview trocar and inflated to 15 mmHg pressure with CO2. Laparoscope was reinserted. No underlying trocar insertion site injuries were seen. Following this, a single 5 mm left lower quadrant trocar was placed. This allowed identification of the area of the IUD penetrating through the surface of the uterus. As this was elevated upward, it was noted there was quite intense scarring around the area where the IUD had come through, and the uterus itself was contracted and probably internally distorted and scarred as well. Given this, it was felt at this point the best approach would be to proceed with an open approach, specifically a hysterectomy and then identification of any bowel injuries that might be present. Given this, trocars were removed and the peritoneal cavity deflated. The patient's previous section incision was then reused, as any bowel injury was felt to be low enough that it would be approachable through this incision. This was carried down through the skin, subcutaneous tissue, and through the anterior rectus sheath. Subrectus sheath flap was then raised superiorly. It was noted, in the superior end of this, there was an incisional hernia where there was some omentum present between the leaves of the rectus muscles. This was subsequently reduced and closed as part of the closure of the abdominal wall. The inferior flap was also then raised and the midline peritoneum divided. Upon entering the peritoneal cavity, inspection revealed a point in the base of the sigmoid colon at its junction with the mesentery where there was some old blood present. There did not appear to be a full-thickness injury to this area, but there was some deserosalization and hemorrhage into the wall of the sigmoid colon at that level. This was repaired at this point with 2 layers of seromuscular 3-0 Vicryl stitch. The uterus, as mentioned above, was densely contracted and scarred down. The patient had no ovaries evidently remaining. The peritoneal reflection of bladder on the uterus was then divided and the bladder dissected down to a point on the upper vagina. The broad and round ligaments were then divided with REDDY jannette, as were the cardinal ligaments. The uterosacral ligaments were then clamped and divided and suture-ligated with 0 Vicryl stitch. The vagina was then divided circumferentially just below the cervix. There were no strings or other apparatus coming out of the cervix noted, so everything had apparently pulled up into the uterus, as far as the components of the IUD were concerned. The specimen consisting of total abdominal hysterectomy and contained IUD were then delivered from the field. Vaginal cuff closure was then accomplished with continuation of the uterosacral ligament sutures. At this point, no further problems were noted. The abdomen was irrigated with meropenem- containing saline solution. Interceed mesh was then placed across the lower pelvis, including over the vaginal cuff closure, to displace those surfaces from the underlying viscera to limit recurrent adhesion formation. The omentum was also then amply pulled down. A single Jacinto-Barba drain was taken out through the left lateral abdominal trocar site and placed into the depths of the pelvis. The posterior peritoneum closure was then accomplished, which closed the area of herniation as well. This was with #2 Vicryl stitch, which was also used to close the anterior rectus sheath. Subcutaneous tissue was approximated with some 3-0 and 4-0 Vicryl stitch deep and a 4-0 Vicryl subcuticular stitch and a surgical glue for the skin surface. Drains were affixed to the skin with some 3-0 Vicryl stitch. The patient was taken to the recovery room in satisfactory condition. There were no evident complications. Stan Weston MD /[id number]
[2019-07-18] MEDS ORDERED: VERIFY SCOP PATCH TOP SCH (09:00)
== END 2019-07-17 10:15 | disposition home or self-care (01) | DRG 513 ==
LOC: JP.MS 16:34
PROVIDERS: ADMIT Hospitalist; ATTEND Hospitalist
PROC: 0UT90ZZ Resection of Uterus, Open Approach (ICD-10-PCS; principal; 2019-07-13)
PROC: 0WQF0ZZ Repair Abdominal Wall, Open Approach (ICD-10-PCS; 2019-07-13)
PROC: 3E0M05Z Introduction of Adhesion Barrier into Peritoneal Cavity, Open Approach (ICD-10-PCS; 2019-07-13)
PROC: 3E0234Z Introduction of Serum, Toxoid and Vaccine into Muscle, Percutaneous Approach (ICD-10-PCS; 2019-07-13)
PROC: 0UJD4ZZ Inspection of Uterus and Cervix, Percutaneous Endoscopic Approach (ICD-10-PCS; 2019-07-13)
PROC: 0UPD0HZ Removal of Contraceptive Device from Uterus and Cervix, Open Approach (ICD-10-PCS; 2019-07-13)
PROC: 0DQN0ZZ Repair Sigmoid Colon, Open Approach (ICD-10-PCS; 2019-07-13)
DX: T83.39XA Other mechanical complication of intrauterine contraceptive device, initial encounter (principal); Y83.8 Other surgical procedures as the cause of abnormal reaction of the patient, or of later complication, without mention of misadventure at the time of the procedure; J44.9 Chronic obstructive pulmonary disease, unspecified; G89.29 Other chronic pain; M54.9 Dorsalgia, unspecified; F32.9 Major depressive disorder, single episode, unspecified; K43.2 Incisional hernia without obstruction or gangrene; Z79.52 Long term (current) use of systemic steroids; Z79.899 Other long term (current) drug therapy; Z87.01 Personal history of pneumonia (recurrent); Z90.89 Acquired absence of other organs; Z87.891 Personal history of nicotine dependence; Z23 Encounter for immunization
CPT/HCPCS: 36415; 74019; 74019-26; 80053; 83735; 84100; 85025; 88307; 90732; 94640; 94762; A9270-GY; C9113; J0171; J0330; J0694; J1100; J1170; J2185; J2405; J2704; J2710; J2795; J3010; J3410; J3490; J7050; J7120; J7121; J7620-GY

== ENCOUNTER 2020-08-17 17:37 | Emergency (ER) | payer MEDICAID ==
[2020-08-17 18:36] VITALS: BP 135/94; PULSE 82
--- NOTE | 2020-08-17 21:15 | EDM.PDOC ---
ED HPI GENERAL MEDICAL PROBLEM - General Chief Complaint: Behavioral/Psych Stated Complaint: MENTAL HEALTH Time Seen by Provider: 08/17/20 21:10 Source of Information: Reports: Patient History Limitations: Reports: No Limitations - History of Present Illness INITIAL COMMENTS - FREE TEXT/NARRATIVE: pt arrived with a history of suiciodal ideation. She recently is thinking her life uinsurance would be of more benefit to her kids then her being alive. She has had a series of chronic health issues which has increased her depression alot. She has one son living at home with her and she feels like she is not able to parent him. Onset: Gradual, Other (last week has been the worst. She did talk to Hien her medication regulation person who thought inpatient treatment would be the best for her. ) Duration: Day(s): Location: Reports: Generalized Associated Symptoms: Reports: Other ( chronic pain. ) - Related Data Allergies Allergy/AdvReac Type Severity Reaction Status Date / Time bee venom protein (honey bee) Allergy Arrhythmias Verified 08/17/20 19:34 cat dander Allergy Other Verified 08/17/20 19:34 Dairy Products Allergy Diarrhea Verified 08/17/20 19:34 dog dander Allergy Other Verified 08/17/20 19:34 NSAIDS (Non-Steroidal Allergy Renal Verified 07/12/19 19:39 Anti-Inflamma Insufficiency peanut Allergy Blisters Verified 08/17/20 19:34 pineapple Allergy Blisters Verified 08/17/20 19:34 Home Meds: Home Meds Albuterol [Ventolin HFA] 2 puff INH QID PRN 07/10/16 [History] Montelukast [Singulair] 10 mg PO BEDTIME 08/23/17 [History] Albuterol Sulfate 3 ml INH Q4H PRN 05/01/18 [History] Azelastine [Astelin Nasal Soln] 2 sprays NS BID 07/13/19 [History] Cyclobenzaprine HCl 10 mg PO DAILY PRN 07/13/19 [History] DULoxetine HCl [Duloxetine HCl] 120 mg PO DAILY 07/13/19 [History] Fluticasone Propionate [Flonase] 2 sprays NS DAILY 07/13/19 [History] Omeprazole 40 mg PO DAILY 07/13/19 [History] Raloxifene [Evista] 60 mg PO BEDTIME 07/13/19 [History] buPROPion HCL [Bupropion HCl Sr] 150 mg PO BID 07/13/19 [History] Ondansetron [Zofran ODT] 4 mg PO Q4H PRN #30 tab.dis 07/17/19 [Rx] Acetaminophen [Tylenol Extra Strength] 1,000 mg PO BID 08/17/20 [History] Budesonide/Formoterol [Symbicort 160-4.5 MCG] 2 puff INH BID 08/17/20 [History] Cetirizine HCl [Zyrtec] 10 mg PO DAILY 08/17/20 [History] ClonazePAM [KlonoPIN] 0.5 mg PO TID PRN 08/17/20 [History] Famotidine 1 tab PO DAILY 08/17/20 [History] Prazosin [Minpress] 4 mg PO BEDTIME 08/17/20 [History] QUEtiapine [SEROquel] 50 mg PO BEDTIME 08/17/20 [History] busPIRone HCl [busPIRone] 30 mg PO BID 08/17/20 [History] Past Medical History HEENT History: Reports: Impaired Vision Cardiovascular History: Reports: SOB on Exertion Respiratory History: Reports: Asthma, COPD, Pneumonia, Recurrent Gastrointestinal History: Reports: GERD, Irritable Bowel Syndrome 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: Musculoskeletal History: Reports: Back Pain, Chronic, Fracture, Other (See Below) Other Musculoskeletal History: degenerative joint disease Psychiatric History: Reports: Anxiety, Depression, PTSD - Infectious Disease History Infectious Disease History: Reports: Chicken Pox, Shingles - Past Surgical History HEENT Surgical History: Reports: Tonsillectomy, Other (See Below) Other HEENT Surgeries/Procedures: ear surgery GI Surgical History: Reports: Colonoscopy, Hernia, Abdominal Female Surgical History: Reports: Section, Hysterectomy, Salpingo- Oophorectomy Musculoskeletal Surgical History: Reports: Arthroscopic Knee Other Musculoskeletal Surgeries/Procedures:: hand surgery Fusion. L foot Oncologic Surgical History: Reports: Lumpectomy Social & Family History - Tobacco Use Tobacco Use Status *Q: Current Every Day Tobacco User Years of Tobacco use: 36 Packs/Tins Daily: 0.2 - Caffeine Use Caffeine Use: Reports: Coffee, Tea - Recreational Drug Use Recreational Drug Use: Yes Drug Use in Last 12 Months: Yes Recreational Drug Type: Reports: Marijuana/Hashish Recreational Drug Use Frequency: Weekly ED ROS GENERAL - Review of Systems Review Of Systems: See Below Constitutional: Reports: No Symptoms HEENT: Reports: No Symptoms Respiratory: Reports: No Symptoms Cardiovascular: Reports: No Symptoms Endocrine: Reports: Fatigue, Other (pt does have chronic fatique syndrome. ) GI/Abdominal: Reports: No Symptoms : Reports: No Symptoms Musculoskeletal: Reports: Muscle Pain, Muscle Stiffness, Other (pt has known fibromyalia. ) - Physical Exam Exam: See Below Text/Narrative:: pt arrived with a very flat affect. She has a history of chronic pain in her back. She has had increased depression with suicidal ideation. Exam Limited By: No Limitations General Appearance: Alert, Anxious, Other (very flat with her affect. ) Ears: Normal TMs Nose: Normal Inspection Throat/Mouth: Normal Inspection Head Exam: Atraumatic Neck: Normal Inspection Respiratory/Chest: No Respiratory Distress Cardiovascular: Regular Rate, Rhythm (Female) Exam: Deferred Rectal (Female) Exam: Deferred Neuro Exam (Abbreviated): Alert, Oriented, Normal Cognition Back Exam: Other ( history of chronic back pain) Extremities: Normal Inspection Psychiatric: Flat Affect, Tearful (pt is havin suicidal ideation), Other Course - Vital Signs Last Recorded V/S: Last Vital Signs Temp 36.3 C 08/17/20 19:48 Pulse 82 08/17/20 19:48 Resp 16 08/17/20 19:48 BP 135/94 H 08/17/20 19:48 Pulse Ox 98 08/17/20 19:48 - Orders/Labs/Meds Orders: Active Orders 24 hr Category Date Time Status Isolation [COMM] Stat Oth 08/17/20 20:10 Ordered Labs: Laboratory Tests 08/17/20 08/17/20 08/17/20 Range/Units 17:08 17:08 17:08 WBC 11.4 H (4.5-11.0) K/uL RBC 4.22 (3.30-5.50) M/uL Hgb 13.4 D (12.0-15.0) g/dL Hct 40.0 (36.0-48.0) % MCV 95 (80-98) fL MCH 32 H (27-31) pg MCHC 34 (32-36) % Plt Count 283 (150-400) K/uL Neut % (Auto) 57 (36-66) % Lymph % (Auto) 31 (24-44) % [place] % (Auto) 10 H (2-6) % Eos % (Auto) 1 L (2-4) % Baso % (Auto) 1 (0-1) % Sodium 145 (140-148) mmol/L Potassium 3.9 (3.6-5.2) mmol/L Chloride 105 (100-108) mmol/L Carbon Dioxide 27 (21-32) mmol/L Anion Gap 13.0 (5.0-14.0) mmol/L BUN 19 H D (7-18) mg/dL Creatinine 1.3 H (0.6-1.0) mg/dL Est Cr Clr Drug Dosing 52.81 mL/min Estimated GFR (MDRD) 44 L (>60) Glucose 92 (74-106) mg/dL Calcium 9.5 D (8.5-10.1) mg/dL Total Bilirubin 0.4 (0.2-1.0) mg/dL AST 15 (15-37) U/L ALT 29 (12-78) U/L Alkaline Phosphatase 94 (46-116) U/L Total Protein 7.7 (6.4-8.2) g/dL Albumin 4.0 (3.4-5.0) g/dL Globulin 3.7 H (2.3-3.5) g/dL Albumin/Globulin Ratio 1.1 L (1.2-2.2) TSH, Ultra Sensitive (0.358-3.740) uIU/mL Urine Color (YELLOW) Urine Appearance (CLEAR) Urine pH (5.0-8.0) Ur Specific [place] (1.008-1.030) Urine Protein (NEGATIVE) mg/dL Urine Glucose (UA) (NEGATIVE) mg/dL Urine Ketones (NEGATIVE) mg/dL Urine Occult Blood (NEGATIVE) Urine Nitrite (NEGATIVE) Urine Bilirubin (NEGATIVE) Urine Urobilinogen (0.2-1.0) EU/dL Ur Leukocyte Esterase (NEGATIVE) Urine RBC (0-5) Urine WBC (0-5) Ur Epithelial Cells Amorphous Sediment Urine Bacteria Urine Mucus Urine Opiates Screen (NEGATIVE) Ur Oxycodone Screen (NEGATIVE) Urine Methadone Screen (NEGATIVE) Ur Propoxyphene Screen (NEGATIVE) Ur Barbiturates Screen (NEGATIVE) Ur Tricyclics Screen (NEGATIVE) Ur Phencyclidine Scrn (NEGATIVE) Ur Amphetamine Screen (NEGATIVE) U Methamphetamines Scrn (NEGATIVE) Urine MDMA Screen (NEGATIVE) U Benzodiazepines Scrn (NEGATIVE) U Cocaine Metab Screen (NEGATIVE) U Marijuana (THC) Screen (NEGATIVE) Ethyl Alcohol < 3 mg/dL Influenza Type A RNA (NEGATIVE) RSV RNA (INAAT) (NEGATIVE) Influenza Type B RNA (NEGATIVE) SARS-CoV-2 RNA (HEATHER) (NEGATIVE) 08/17/20 08/17/20 08/17/20 Range/Units 20:00 20:00 20:13 WBC (4.5-11.0) K/uL RBC (3.30-5.50) M/uL Hgb (12.0-15.0) g/dL Hct (36.0-48.0) % MCV (80-98) fL MCH (27-31) pg MCHC (32-36) % Plt Count (150-400) K/uL Neut % (Auto) (36-66) % Lymph % (Auto) (24-44) % [place] % (Auto) (2-6) % Eos % (Auto) (2-4) % Baso % (Auto) (0-1) % Sodium (140-148) mmol/L Potassium (3.6-5.2) mmol/L Chloride (100-108) mmol/L Carbon Dioxide (21-32) mmol/L Anion Gap (5.0-14.0) mmol/L BUN (7-18) mg/dL Creatinine (0.6-1.0) mg/dL Est Cr Clr Drug Dosing mL/min Estimated GFR (MDRD) (>60) Glucose (74-106) mg/dL Calcium (8.5-10.1) mg/dL Total Bilirubin (0.2-1.0) mg/dL AST (15-37) U/L ALT (12-78) U/L Alkaline Phosphatase (46-116) U/L Total Protein (6.4-8.2) g/dL Albumin (3.4-5.0) g/dL Globulin (2.3-3.5) g/dL Albumin/Globulin Ratio (1.2-2.2) TSH, Ultra Sensitive 4.342 H (0.358-3.740) uIU/mL Urine Color Yellow (YELLOW) Urine Appearance Slightly cloudy A (CLEAR) Urine pH 6.0 (5.0-8.0) Ur Specific [place] 1.020 (1.008-1.030) Urine Protein Negative (NEGATIVE) mg/dL Urine Glucose (UA) Negative (NEGATIVE) mg/dL Urine Ketones Trace H (NEGATIVE) mg/dL Urine Occult Blood Negative (NEGATIVE) Urine Nitrite Negative (NEGATIVE) Urine Bilirubin Negative (NEGATIVE) Urine Urobilinogen 0.2 (0.2-1.0) EU/dL Ur Leukocyte Esterase Negative (NEGATIVE) Urine RBC 0-5 (0-5) Urine WBC 0-5 (0-5) Ur Epithelial Cells Moderate Amorphous Sediment Not seen Urine Bacteria Moderate Urine Mucus Few Urine Opiates Screen Negative (NEGATIVE) Ur Oxycodone Screen Negative (NEGATIVE) Urine Methadone Screen Negative (NEGATIVE) Ur Propoxyphene Screen Negative (NEGATIVE) Ur Barbiturates Screen Negative (NEGATIVE) Ur Tricyclics Screen Negative (NEGATIVE) Ur Phencyclidine Scrn Negative (NEGATIVE) Ur Amphetamine Screen Negative (NEGATIVE) U Methamphetamines Scrn Negative (NEGATIVE) Urine MDMA Screen Negative (NEGATIVE) U Benzodiazepines Scrn Negative (NEGATIVE) U Cocaine Metab Screen Negative (NEGATIVE) U Marijuana (THC) Screen Presumptive positive H (NEGATIVE) Ethyl Alcohol mg/dL Influenza Type A RNA (NEGATIVE) RSV RNA (INAAT) (NEGATIVE) Influenza Type B RNA (NEGATIVE) SARS-CoV-2 RNA (HEATHER) (NEGATIVE) 08/17/20 Range/Units 21:28 WBC (4.5-11.0) K/uL RBC (3.30-5.50) M/uL Hgb (12.0-15.0) g/dL Hct (36.0-48.0) % MCV (80-98) fL MCH (27-31) pg MCHC (32-36) % Plt Count (150-400) K/uL Neut % (Auto) (36-66) % Lymph % (Auto) (24-44) % [place] % (Auto) (2-6) % Eos % (Auto) (2-4) % Baso % (Auto) (0-1) % Sodium (140-148) mmol/L Potassium (3.6-5.2) mmol/L Chloride (100-108) mmol/L Carbon Dioxide (21-32) mmol/L Anion Gap (5.0-14.0) mmol/L BUN (7-18) mg/dL Creatinine (0.6-1.0) mg/dL Est Cr Clr Drug Dosing mL/min Estimated GFR (MDRD) (>60) Glucose (74-106) mg/dL Calcium (8.5-10.1) mg/dL Total Bilirubin (0.2-1.0) mg/dL AST (15-37) U/L ALT (12-78) U/L Alkaline Phosphatase (46-116) U/L Total Protein (6.4-8.2) g/dL Albumin (3.4-5.0) g/dL Globulin (2.3-3.5) g/dL Albumin/Globulin Ratio (1.2-2.2) TSH, Ultra Sensitive (0.358-3.740) uIU/mL Urine Color (YELLOW) Urine Appearance (CLEAR) Urine pH (5.0-8.0) Ur Specific [place] (1.008-1.030) Urine Protein (NEGATIVE) mg/dL Urine Glucose (UA) (NEGATIVE) mg/dL Urine Ketones (NEGATIVE) mg/dL Urine Occult Blood (NEGATIVE) Urine Nitrite (NEGATIVE) Urine Bilirubin (NEGATIVE) Urine Urobilinogen (0.2-1.0) EU/dL Ur Leukocyte Esterase (NEGATIVE) Urine RBC (0-5) Urine WBC (0-5) Ur Epithelial Cells Amorphous Sediment Urine Bacteria Urine Mucus Urine Opiates Screen (NEGATIVE) Ur Oxycodone Screen (NEGATIVE) Urine Methadone Screen (NEGATIVE) Ur Propoxyphene Screen (NEGATIVE) Ur Barbiturates Screen (NEGATIVE) Ur Tricyclics Screen (NEGATIVE) Ur Phencyclidine Scrn (NEGATIVE) Ur Amphetamine Screen (NEGATIVE) U Methamphetamines Scrn (NEGATIVE) Urine MDMA Screen (NEGATIVE) U Benzodiazepines Scrn (NEGATIVE) U Cocaine Metab Screen (NEGATIVE) U Marijuana (THC) Screen (NEGATIVE) Ethyl Alcohol mg/dL Influenza Type A RNA Negative (NEGATIVE) RSV RNA (INAAT) Negative (NEGATIVE) Influenza Type B RNA Negative (NEGATIVE) SARS-CoV-2 RNA (HEATHER) Negative (NEGATIVE) - Re-Assessments/Exams Free Text/Narrative Re-Assessment/Exam: 08/17/20 21:16 pt has borderline renal funtion-- chronic, labs are otherwise good. Her drug screen is neg except for marjauna for chronic pain. she is stable medically. Departure - Departure Time of Disposition: 22:56 Disposition: DC/Tfer to Psych Hosp/Unit [facility] Condition: Fair Clinical Impression: Depression, Suicidal ideation - Discharge Information Referrals: Janny Elkins PA [Primary Care Provider] - Forms: ED Department Discharge Care Plan Goals: transfer to [facility] unit-- Sudarshan Garza. Pt will be transported by her mother. Sepsis Event Note (ED) - Evaluation Sepsis Screening Result: No Definite Risk - Focused Exam Vital Signs: Vital Signs Temp Pulse Resp BP Pulse Ox 08/17/20 19:48 36.3 C 82 16 135/94 H 98 08/17/20 18:34 36.3 C 82 16 135/94 H 98 - My Orders Last 24 Hours: My Active Orders 08/17/20 20:10 Isolation [COMM] Stat - Assessment/Plan Last 24 Hours: My Active Orders 08/17/20 20:10 Isolation [COMM] Stat
[2020-08-17 22:10] LABS: CORONAVIRUS COVID-19 NAA NEGATIVE (NEGATIVE)
== END 2020-08-17 23:07 ==
LOC: JP.ED 17:37
DX: F32.9 Major depressive disorder, single episode, unspecified (principal); J44.9 Chronic obstructive pulmonary disease, unspecified; K21.9 Gastro-esophageal reflux disease without esophagitis; Z20.822 Contact with and (suspected) exposure to COVID-19; Z91.030 Bee allergy status; Z91.011 Allergy to milk products; Z91.048 Other nonmedicinal substance allergy status; Z91.010 Allergy to peanuts; Z91.018 Allergy to other foods; Z79.899 Other long term (current) drug therapy; Z72.0 Tobacco use
CPT/HCPCS: 0241U; 36415; 80053; 80305-QW; 80307; 81001; 84443; 85025; 99284

== ENCOUNTER 2021-06-11 06:35 | Day surgery (SDC) | payer MEDICAID ==
[2021-06-11] MEDS ORDERED: Sodium Chloride 0.9% 1,000 ML IV SCH (07:00)
[2021-06-11] MEDS ORDERED: fentaNYL 100 MCG/2 ML SDV ONE (07:19)
[2021-06-11] MEDS ORDERED: Midazolam 1 MG/ML 2 ML SDV ONE (07:19)
[2021-06-11] MEDS ORDERED: Propofol 200 MG/20 ML SDV ONE (07:19)
[2021-06-11 09:31] VITALS: BP 141/93; PULSE 55
== END 2021-06-11 09:48 | disposition home or self-care (01) ==
LOC: JP.SDS 06:35
PROVIDERS: ATTEND Surgery
DX: K63.5 Polyp of colon (principal); K64.8 Other hemorrhoids; J45.909 Unspecified asthma, uncomplicated; G47.33 Obstructive sleep apnea (adult) (pediatric); F17.200 Nicotine dependence, unspecified, uncomplicated
CPT/HCPCS: 45380; 46221; J2250; J2704; J3010; J7030; 88305

== ENCOUNTER 2021-12-05 13:07 | Emergency (ER) | payer MEDICAID, OTHER ==
[2021-12-05 14:23] VITALS: BP 121/84; PULSE 67
== END 2021-12-05 16:17 | disposition home or self-care (01) ==
LOC: JP.ED 13:07
DX: S63.610A Unspecified sprain of right index finger, initial encounter (principal); J45.909 Unspecified asthma, uncomplicated; Z91.030 Bee allergy status; Z91.048 Other nonmedicinal substance allergy status; Z88.6 Allergy status to analgesic agent; Z91.010 Allergy to peanuts; Z91.011 Allergy to milk products; Z91.018 Allergy to other foods; Z79.899 Other long term (current) drug therapy; Z86.16 Personal history of COVID-19; Z90.710 Acquired absence of both cervix and uterus; Z87.891 Personal history of nicotine dependence; W23.1XXA Caught, crushed, jammed, or pinched between stationary objects, initial encounter
CPT/HCPCS: 73140-26-F6; 73140-F6; 99281; 99283

== ENCOUNTER 2023-06-12 15:00 | Emergency (ER) | payer MEDICAID, MEDICARE ==
[2023-06-12 15:19] VITALS: BP 123/95; PULSE 91
[2023-06-12 18:47] LABS: BASOPHILS ABSOLUTE AUTO 0.09 K/uL (0.00-0.10); BASOPHILS PERCENT AUTO 1.2 % (0.1-1.3); EOSINOPHILS ABSOLUTE AUTO 0.15 K/uL (0.00-0.40); HEMATOCRIT 34.4 % (34.3-46.0); HEMOGLOBIN 11.7 g/dL (11.2-15.5); IMMATURE GRAN PERCENT AUTO 0.3 % (0.0-0.7); LYMPHOCYTES ABSOLUTE AUTO 3.37 K/uL (0.8-3.3); LYMPHOCYTES PERCENT AUTO 45.9 % (11.4-47.7); MEAN CORPUSCULAR HEMOGLOBIN 31.3 pg (31.6-35.5); MONOCYTES ABSOLUTE AUTO 0.63 K/uL (0.20-0.90); MONOCYTES PERCENT AUTO 8.6 % (3.3-12.6); NEUTROPHILS ABSOLUTE AUTO 3.08 K/uL (1.0-7.6); PLATELET COUNT,PLT 219 K/uL (130-375); RED BLOOD CELL COUNT 3.74 M/uL (3.77-5.24); WHITE BLOOD CELL COUNT,WBC 7.3 K/uL (3.2-11.0)
[2023-06-12 18:48] LABS: APPEARANCE,URINE CLEAR (CLEAR); BILIRUBIN,URINE NEGATIVE (NEGATIVE); COLOR,URINE YELLOW (YELLOW); GLUCOSE,URINE NEGATIVE (NEGATIVE); KETONES,URINE NEGATIVE (NEGATIVE); LEUKOCYTE ESTERASE,URINE NEGATIVE (NEGATIVE); NITRITE,URINE NEGATIVE (NEGATIVE); OCCULT BLOOD,URINE NEGATIVE (NEGATIVE); PH,URINE 5.5 (5.0-8.0); PROTEIN,URINE NEGATIVE (NEGATIVE); UROBILINOGEN,URINE 0.2 EU/dL (0.2-1.0)
[2023-06-12 18:49] LABS: IMMATURE GRAN ABSOLUTE AUTO 0.02 K/uL (0.00-0.23)
[2023-06-12 18:52] LABS: AMORPHOUS SEDIMENT,URINE NOT SEEN; BACTERIA,URINE RARE; EPITHELIAL CELLS,URINE RARE; MUCUS,URINE NOT SEEN; RBC,URINE 0-5 (0-5); WBC,URINE 0-5 (0-5)
[2023-06-12] MEDS: Iopamidol 612 MG/ML 100 ML Bottle IV ONE (19:21)
[2023-06-12] MEDS: Sodium Chloride 0.9% 10 ML Syringe FLUSH ONE (19:21)
[2023-06-12] MEDS: Sodium Chloride 0.9% 100 ML IV ONE (19:21)
[2023-06-12] MEDS: Sodium Chloride 0.9% 10 ML Syringe FLUSH PRN (19:53)
[2023-06-12] MEDS: Sodium Chloride 0.9% 1,000 ML IV ONE (19:54)
[2023-06-12 20:06] LABS: ALANINE AMINOTRANSFERASE,ALT 26 U/L (12-78); ALBUMIN 3.8 g/dL (3.4-5.0); ALKALINE PHOSPHATASE 96 U/L (46-116); ASPARTATE AMNIOTRANSFERASE,AST 26 U/L (15-37); BILIRUBIN TOTAL 0.3 mg/dL (0.2-1.0); BLOOD UREA NITROGEN,BUN 9 mg/dL (7-18); CALCIUM 8.8 mg/dL (8.5-10.1); CARBON DIOXIDE,CO2 26 mmol/L (21-32); CHLORIDE,CL 101 mmol/L (100-108); EST CRCL DRUG DOSING (CG) 56.83 mL/min; ESTIMATED GFR 68 mL/min (>60); GLUCOSE RANDOM 91 mg/dL (74-106); POTASSIUM,K 3.6 mmol/L (3.6-5.2); PROTEIN TOTAL,TP 7.6 g/dL (6.4-8.2); SODIUM,NA 136 mmol/L (140-148)
[2023-06-12 20:07] LABS: ANION GAP 12.6 mmol/L (5.0-14.0)
== END 2023-06-12 20:57 | disposition home or self-care (01) ==
LOC: JP.ED 15:00
DX: R10.31 Right lower quadrant pain (principal); J44.89 Other specified chronic obstructive pulmonary disease; K21.9 Gastro-esophageal reflux disease without esophagitis; Z91.030 Bee allergy status; Z91.048 Other nonmedicinal substance allergy status; Z91.018 Allergy to other foods; Z88.6 Allergy status to analgesic agent; Z79.899 Other long term (current) drug therapy; Z86.19 Personal history of other infectious and parasitic diseases; Z86.16 Personal history of COVID-19; Z90.49 Acquired absence of other specified parts of digestive tract; Z87.891 Personal history of nicotine dependence
CPT/HCPCS: 36415; 74177; 80053; 81001; 85025; 96360; 99284; J3490; J7030; Q9967

== ENCOUNTER 2023-07-19 07:07 | Day surgery (SDC) | payer MEDICARE ==
[2023-07-19] MEDS ORDERED: fentaNYL 50 MCG/ML SDV ONE (07:25)
[2023-07-19] MEDS ORDERED: Propofol 200 MG/20 ML SDV ONE ×3 (07:25→08:33)
[2023-07-19] MEDS ORDERED: Midazolam 1 MG/ML 2 ML SDV ONE (07:25)
[2023-07-19] MEDS: Lactated Ringers 1,000 ML IV SCH (07:39)
[2023-07-19 09:40] VITALS: BP 120/79; PULSE 58
== END 2023-07-19 09:55 | disposition home or self-care (01) ==
LOC: JP.SDS 07:07
PROVIDERS: ATTEND Student in an Organized Health Care Education/Training Program
DX: D12.0 Benign neoplasm of cecum (principal); K63.5 Polyp of colon; J44.9 Chronic obstructive pulmonary disease, unspecified; G47.33 Obstructive sleep apnea (adult) (pediatric)
CPT/HCPCS: 45380; J2250; J2704; J3010; J7120; 88305